=== PATIENT | female | born 1945 | race Caucasian/White ===

== ENCOUNTER 2020-05-26 23:47 | Inpatient (IN) | payer MEDICARE, OTHER, SELFPAY ==
[2020-05-26 23:54] VITALS: BP 159/73; PULSE 79; RESP 24; O2SAT 100; BMI 27.0
[2020-05-27] VITALS (10 sets, daily range): BP systolic 115–139; BP diastolic 58–82; PULSE 70–99; RESP 16–20; TEMP 36.8–37.2; O2SAT 92–100
--- NOTE | 2020-05-27 00:03 | ECG_ITS ---
[facility] Test Date: 2020-05-27 Pat Name: Karina Grant Department: Room: Gender: Female Hydraulic Technician: : 1945 Requested By: Marleni Diego Order Number: [id number] Arnel MD: Jovi Soriano M.D. Measurements Intervals [place] Rate: 71 P: 139 WI: 155 QRS: -33 QRSD: 145 T: 32 QT: 443 QTc: 483 Interpretive Statements ECTOPIC ATRIAL RHYTHM POSSIBLE LEFT ATRIAL ENLARGEMENT [-0.1mV P WAVE IN V1/V2] LEFT AXIS DEVIATION [QRS AXIS < -30] RIGHT BUNDLE BRANCH BLOCK [120+ ms QRS DURATION, UPRIGHT V1, 40+ ms S IN I/aVL/V4/V5/V6] LEFT VENTRICULAR HYPERTROPHY AND ST-T CHANGE [VOLTAGE CRITERIA PLUS ST/T ABNORMALITY] POSSIBLE SEPTAL MYOCARDIAL INFARCTION , OF INDETERMINATE AGE [30 ms Q WAVE IN V1/V2] PROBABLE LATERAL MYOCARDIAL INFARCTION , OF INDETERMINATE AGE [35 ms Q WAVE IN I/aVL/V5/V6] No previous ECG available for comparison Electronically Signed On 05-27-2020 20:52:08 CDT by Jovi Soriano M.D. [id number]
--- NOTE | 2020-05-27 00:03 | XR_ITS ---
WS: [id number] EXAM: AP CHEST: PORTABLE UPRIGHT DATE OF EXAM: 05/27/2020, 0015 hours COMPARISON: NONE HISTORY: Patient is 75 years old with shortness of breath, vomiting/diarrhea and sweating. FINDINGS: The cardiac silhouette is normal in size. The mediastinal contours are normal. The pulmonary vas cularity is normal. The lungs are clear of infiltrate. There is no effusion or pneumothorax. No ac ryan bony abnormality is seen. Tiny retrocardiac hiatal hernia. XR/XR chest 1V portable [id number] IMPRESSION: No acute pulmonary disease.
--- NOTE | 2020-05-27 00:05 | ED_ITS ---
Documented by User: GLADIS Storey 05/27/20 03:42 HPI - SOB/Dyspnea General: Chief Complaint: Shortness of Breath/Dyspnea Stated Complaint: feeling sick Time Seen by Provider: 05/26/20 23:52 Source: patient Mode of arrival: wheelchair Limitations: no limitations History of Present Illness: HPI Narrative: Patient is a 75-year-old female who presents to ED today along with her stating approximately 3 hours ago while at rest she suddenly felt nauseous and began sweating. She states she had two episodes of vomiting after which began developing shortness of breath. She states symptoms did not improve therefore decided to come to the emergency department for further evaluation. Upon arrival she is not having any chest pain. She states she still feels short of breath and nauseous. She is not having any abdominal pain. She has not been running fevers. Denies sick contacts or COVID exposure. PMH is significant for HTN and CKD. Associated symptoms: Reports nausea and vomiting; Deny abdominal pain, chest congestion, chest pain, dizziness, extremity pain, fever(s), hemoptysis, lightheadedness, orthopnea, palpitations or syncope Review of Systems Const: Denies: fever(s), chills, body aches, change in appetite, change in weight, fatigue or malaise Eyes: Denies: change in vision, blurry vision, photophobia, floaters or seeing flashes ENMT: Denies: odynophagia Card: Denies: chest pain, palpitations, irregular heart rhythm, edema, swelling of feet/ankles, lightheadedness, syncope, pre-syncope, dyspnea on exertion, orthopnea or leg pain with exertion Resp: Reports: dyspnea; Denies: productive cough, non-productive cough, wheezing, stridor, pain on inspiration, change in phlegm color, hemoptysis or chest congestion GI: Reports: nausea and vomiting; Denies: abdominal pain, hematemesis, coffee ground emesis, heartburn, diarrhea, change in bowel habits, change in stool character, hematochezia or melena : Denies: flank pain, difficulty voiding, dysuria, urinary frequency, urinary urgency or urinary hesitancy Musc: Denies: neck pain, back pain, extremity pain, extremity swelling, joint pain or joint swelling Skin/Breast: Denies: rash Neuro: Denies: headache(s), numbness in extremities, weakness in extremities, sensory changes, lack of coordination, dizziness, vertigo or confusion PFSH ED PFSH: Medical History Chronic kidney disease Hyperlipidemia Hypertension Surgical History History of hysterectomy Family History Mother CAD (coronary artery disease) Father Lung disease CAD (coronary artery disease) Sister Cancer Colon cancer Social History Smoking and tobacco status: never smoked Alcohol intake: never Household members: spouse Marital status: Physical Exam Const: COMMON NORMALS: average body habitus, patient oriented x3, no limitations, healthy appearing, alert and well nourished GENERAL APPEARANCE: cooperative ORIENTATION/CONSCIOUSNESS: Yes awake, Yes oriented to person, Yes oriented to place and Yes oriented to time OTHER: mild hyperventilation HENMT: COMMON NORMALS: normocephalic and atraumatic HEAD & SCALP: normocephalic and atraumatic Chest: COMMONS NORMALS: normal inspection of the chest and normal palpation of entire chest wall Resp: COMMON NORMALS: normal respiratory effort and clear to auscultation bilaterally EFFORT & INSPECTION: Yes tachypneic, No labored, No retractions and No uses accessory muscles AUSCULTATION: clear to auscultation bilaterally Cardio: COMMON NORMALS: regular rate and regular rhythm RATE: regular rate RHYTHM: regular rhythm GI: COMMON NORMALS: Normal to inspection, nondistended, normoactive bowel sounds present, Soft to palpation, non-tender, No hepatosplenomegaly present and no masses PALPATION: Yes Soft to palpation and Yes No hepatosplenomegaly present Neuro: COMMON NORMALS: patient oriented x3 SENSORIUM/ORIENTATION: Yes alert, Yes oriented to person, Yes oriented to place and Yes oriented to time Skin: COMMON NORMALS: no rashes or lesions noted GENERAL SKIN EXAM: no rashes or lesions noted Course Vital Signs: Vital signs: Vital Signs Temperature 98.2 F 05/28/20 14:00 Pulse Rate 66 05/28/20 14:00 Respiratory Rate 18 05/28/20 14:00 Blood Pressure 150/69 05/28/20 14:00 Pulse Oximetry 96 05/28/20 14:00 MDM - SOB/Dyspnea MDM Narrative: Medical decision making narrative: Patient is resting comfortably in no acute distress. She tells me she feels much better. There has been a SEVERE delay in patient's care regarding her lab work. Her first set of labs were apparently hemolyzed. These were attempted to be redrawn by several individuals without success. Patient has been here over 3.5 hours now and I still do not have any results other than a CBC and a lactate and a d- dimer. Patient does have a white count of 24.2. She has an elevated lactate at 2.7. She has a very mildly elevated d-dimer at 0.74 but this is a normal age- adjusted level. Case has been discussed with Dr. Prince who will assume care due to shift end. Lab Data: Labs: Lab Results 05/27/20 05/27/20 05/27/20 Range/Units 00:18 00:18 00:18 WBC 24.2 H (4.0-10.0) 10^3/ uL RBC 5.20 (4.1-5.3) 10^6/u L Hgb 15.1 (11.5-15.3) g/dL Hct 46.7 (37.0-47.0) % MCV 89.8 (81-99) fL MCH 29.0 (28.0-34.0) pg MCHC 32.3 (30.0-36.0) g/dL RDW 13.2 (12.1-15.1) % Plt Count 235 (130-400) 10^3/c mm MPV 12.9 H (7.4-10.4) fL Neut % (Auto) 83.4 % Lymph % (Auto) 9.3 % [place] % (Auto) 6.0 % Eos % (Auto) 0.5 % Baso % (Auto) 0.3 % Neut # (Auto) 20.22 H (1.8-7.7) 10^3/u L Lymph # (Auto) 2.2 (0.8-4.8) 10^3/u L [place] # (Auto) 1.4 H (0.2-0.9) 10^3/u L Eos # (Auto) 0.1 (0.0-0.8) 10^3/u L Baso # (Auto) 0.1 (0.0-0.1) 10^3/u L Nucleated RBC % (a uto) 0 % Nucleated RBCs # 0.0 /100WBC D-Dimer (0-0.59) ug/mIFE U Specimen Type Sample Site ABG pH (7.35-7.45) ABG pCO2 (35-45) mmHg ABG pO2 (80.0-100.0) mmH g ABG HCO3 (22-26) mmol/L ABG O2 Saturation ABG Base Excess (-2.0-2.0) mmol/ L Eitan Test A-a O2 Gradient (5-10) mmHg Hematocrit (37-47) % Hgb O2 Saturation (95-100) % Carboxyhemoglobin (0.4-20.1) %THgb Methemoglobin (0.4-1.5) % Total Hemoglobin (12-16) g/dL Ionized Calcium (1.1-1.4) mmol/L O2 Delivery Device FiO2 % Claim Representative ID Sodium Cancelled Potassium Cancelled Chloride Cancelled Carbon Dioxide Cancelled Anion Gap Cancelled BUN Cancelled Creatinine Cancelled GFR Calculation Cancelled Glucose Cancelled Calculated Osmolal ity Cancelled Lactic Acid Cancelled Calcium Cancelled Magnesium Cancelled Total Bilirubin Cancelled AST Cancelled ALT Cancelled Alkaline Phosphata se Cancelled Troponin T Baselin e Total Protein Cancelled Albumin Cancelled Globulin Cancelled Lipase (13-60) U/L Urine Color (Yellow) Urine Appearance (CLEAR) Urine pH (5-7) Ur Specific Gravit y (1.005-1.030) Urine Protein (Negative) Urine Glucose (UA) (Normal) Urine Ketones (Negative) Urine Blood (Negative) Urine Nitrate (Negative) Urine Bilirubin (Negative) Urine Urobilinogen (Negative) mg/dL Ur Leukocyte Kay ase (Negative) Urine RBC (0-2) /hpf Urine WBC (0-5) /hpf Ur Squamous Epith Cells (0-5) /hpf Amorphous Sediment /hpf Urine Bacteria (NONE) /hpf Hyaline Casts /lpf Urine Mucus /hpf Serum Ketones (Negative) Influenza Type A A g (Negative) Influenza Type B A g (Negative) SARS-CoV-2 Ag (Rap id) (Negative) 09/05/27/20 05/27/20 Range/Units 00:18 00:18 01:00 WBC (4.0-10.0) 10^3/ uL RBC (4.1-5.3) 10^6/u L Hgb (11.5-15.3) g/dL Hct (37.0-47.0) % MCV (81-99) fL MCH (28.0-34.0) pg MCHC (30.0-36.0) g/dL RDW (12.1-15.1) % Plt Count (130-400) 10^3/c mm MPV (7.4-10.4) fL Neut % (Auto) % Lymph % (Auto) % [place] % (Auto) % Eos % (Auto) % Baso % (Auto) % Neut # (Auto) (1.8-7.7) 10^3/u L Lymph # (Auto) (0.8-4.8) 10^3/u L [place] # (Auto) (0.2-0.9) 10^3/u L Eos # (Auto) (0.0-0.8) 10^3/u L Baso # (Auto) (0.0-0.1) 10^3/u L Nucleated RBC % (a uto) % Nucleated RBCs # /100WBC D-Dimer 0.74 H (0-0.59) ug/mIFE U Specimen Type Arterial Sample Site Brachial, right ABG pH 7.38 (7.35-7.45) ABG pCO2 31.7 L (35-45) mmHg ABG pO2 97.5 (80.0-100.0) mmH g ABG HCO3 18.6 L (22-26) mmol/L ABG O2 Saturation 98.0 ABG Base Excess -5.5 L (-2.0-2.0) mmol/ L Eitan Test Pos A-a O2 Gradient 1.6 L (5-10) mmHg Hematocrit 43.6 (37-47) % Hgb O2 Saturation 96.7 (95-100) % Carboxyhemoglobin 0.5 (0.4-20.1) %THgb Methemoglobin 0.9 (0.4-1.5) % Total Hemoglobin 14.2 (12-16) g/dL Ionized Calcium 1.2 (1.1-1.4) mmol/L O2 Delivery Device None FiO2 21.0 % Claim Representative ID [id number] Sodium 141.0 Potassium 3.9 Chloride Carbon Dioxide Anion Gap BUN Creatinine GFR Calculation Glucose 224.0 H Calculated Osmolal ity Lactic Acid Calcium Magnesium Total Bilirubin AST ALT Alkaline Phosphata se Troponin T Baselin e Cancelled Total Protein Albumin Globulin Lipase (13-60) U/L Urine Color (Yellow) Urine Appearance (CLEAR) Urine pH (5-7) Ur Specific Gravit y (1.005-1.030) Urine Protein (Negative) Urine Glucose (UA) (Normal) Urine Ketones (Negative) Urine Blood (Negative) Urine Nitrate (Negative) Urine Bilirubin (Negative) Urine Urobilinogen (Negative) mg/dL Ur Leukocyte Kay ase (Negative) Urine RBC (0-2) /hpf Urine WBC (0-5) /hpf Ur Squamous Epith Cells (0-5) /hpf Amorphous Sediment /hpf Urine Bacteria (NONE) /hpf Hyaline Casts /lpf Urine Mucus /hpf Serum Ketones (Negative) Influenza Type A A g (Negative) Influenza Type B A g (Negative) SARS-CoV-2 Ag (Rap id) (Negative) 05/27/20 05/27/20 05/27/20 Range/Units 02:40 02:40 03:48 WBC (4.0-10.0) 10^3/ uL RBC (4.1-5.3) 10^6/u L Hgb (11.5-15.3) g/dL Hct (37.0-47.0) % MCV (81-99) fL MCH (28.0-34.0) pg MCHC (30.0-36.0) g/dL RDW (12.1-15.1) % Plt Count (130-400) 10^3/c mm MPV (7.4-10.4) fL Neut % (Auto) % Lymph % (Auto) % [place] % (Auto) % Eos % (Auto) % Baso % (Auto) % Neut # (Auto) (1.8-7.7) 10^3/u L Lymph # (Auto) (0.8-4.8) 10^3/u L [place] # (Auto) (0.2-0.9) 10^3/u L Eos # (Auto) (0.0-0.8) 10^3/u L Baso # (Auto) (0.0-0.1) 10^3/u L Nucleated RBC % (a uto) % Nucleated RBCs # /100WBC D-Dimer (0-0.59) ug/mIFE U Specimen Type Sample Site ABG pH (7.35-7.45) ABG pCO2 (35-45) mmHg ABG pO2 (80.0-100.0) mmH g ABG HCO3 (22-26) mmol/L ABG O2 Saturation ABG Base Excess (-2.0-2.0) mmol/ L E[place] Test A-a O2 Gradient (5-10) mmHg Hematocrit (37-47) % Hgb O2 Saturation (95-100) % Carboxyhemoglobin (0.4-20.1) %THgb Methemoglobin (0.4-1.5) % Total Hemoglobin (12-16) g/dL Ionized Calcium (1.1-1.4) mmol/L O2 Delivery Device FiO2 % Claim Representative ID Sodium Cancelled Potassium Cancelled Chloride Cancelled Carbon Dioxide Cancelled Anion Gap Cancelled BUN Cancelled Creatinine Cancelled GFR Calculation Cancelled Glucose Cancelled Calculated Osmolal ity Cancelled Lactic Acid 2.7 H Calcium Cancelled Magnesium Cancelled Total Bilirubin Cancelled AST Cancelled ALT Cancelled Alkaline Phosphata se Cancelled Troponin T Baselin e 18 H Total Protein Cancelled Albumin Cancelled Globulin Cancelled Lipase (13-60) U/L Urine Color (Yellow) Urine Appearance (CLEAR) Urine pH (5-7) Ur Specific Gravit y (1.005-1.030) Urine Protein (Negative) Urine Glucose (UA) (Normal) Urine Ketones (Negative) Urine Blood (Negative) Urine Nitrate (Negative) Urine Bilirubin (Negative) Urine Urobilinogen (Negative) mg/dL Ur Leukocyte Kay ase (Negative) Urine RBC (0-2) /hpf Urine WBC (0-5) /hpf Ur Squamous Epith Cells (0-5) /hpf Amorphous Sediment /hpf Urine Bacteria (NONE) /hpf Hyaline Casts /lpf Urine Mucus /hpf Serum Ketones (Negative) Influenza Type A A g (Negative) Influenza Type B A g (Negative) SARS-CoV-2 Ag (Rap id) (Negative) 05/27/20 05/27/2020 Range/Units 03:48 03:48 03:48 WBC (4.0-10.0) 10^3/ uL RBC (4.1-5.3) 10^6/u L Hgb (11.5-15.3) g/dL Hct (37.0-47.0) % MCV (81-99) fL MCH (28.0-34.0) pg MCHC (30.0-36.0) g/dL RDW (12.1-15.1) % Plt Count (130-400) 10^3/c mm MPV (7.4-10.4) fL Neut % (Auto) % Lymph % (Auto) % [place] % (Auto) % Eos % (Auto) % Baso % (Auto) % Neut # (Auto) (1.8-7.7) 10^3/u L Lymph # (Auto) (0.8-4.8) 10^3/u L [place] # (Auto) (0.2-0.9) 10^3/u L Eos # (Auto) (0.0-0.8) 10^3/u L Baso # (Auto) (0.0-0.1) 10^3/u L Nucleated RBC % (a uto) % Nucleated RBCs # /100WBC D-Dimer (0-0.59) ug/mIFE U Specimen Type Sample Site ABG pH (7.35-7.45) ABG pCO2 (35-45) mmHg ABG pO2 (80.0-100.0) mmH g ABG HCO3 (22-26) mmol/L ABG O2 Saturation ABG Base Excess (-2.0-2.0) mmol/ L E[place] Test A-a O2 Gradient (5-10) mmHg Hematocrit (37-47) % Hgb O2 Saturation (95-100) % Carboxyhemoglobin (0.4-20.1) %THgb Methemoglobin (0.4-1.5) % Total Hemoglobin (12-16) g/dL Ionized Calcium (1.1-1.4) mmol/L O2 Delivery Device FiO2 % Claim Representative ID Sodium 138 Potassium 4.1 Chloride 103 Carbon Dioxide 18 L Anion Gap 21.1 H BUN 33 H Creatinine 2.3 H GFR Calculation Not Reportable Glucose 154 H Calculated Osmolal ity 286 Lactic Acid Calcium 9.5 Magnesium 2.1 Total Bilirubin 0.4 AST 18 ALT 12 Alkaline Phosphata se 107 H Troponin T Baselin e Total Protein 7.3 Albumin 4.2 Globulin 3.1 Lipase 30 (13-60) U/L Urine Color (Yellow) Urine Appearance (CLEAR) Urine pH (5-7) Ur Specific Gravit y (1.005-1.030) Urine Protein (Negative) Urine Glucose (UA) (Normal) Urine Ketones (Negative) Urine Blood (Negative) Urine Nitrate (Negative) Urine Bilirubin (Negative) Urine Urobilinogen (Negative) mg/dL Ur Leukocyte Kay ase (Negative) Urine RBC (0-2) /hpf Urine WBC (0-5) /hpf Ur Squamous Epith Cells (0-5) /hpf Amorphous Sediment /hpf Urine Bacteria (NONE) /hpf Hyaline Casts /lpf Urine Mucus /hpf Serum Ketones Negative (Negative) Influenza Type A A g (Negative) Influenza Type B A g (Negative) SARS-CoV-2 Ag (Rap id) (Negative) 05/27/20 05/27/20 05/27/20 Range/Units 04:54 05:30 05:45 WBC (4.0-10.0) 10^3/ uL RBC (4.1-5.3) 10^6/u L Hgb (11.5-15.3) g/dL Hct (37.0-47.0) % MCV (81-99) fL MCH (28.0-34.0) pg MCHC (30.0-36.0) g/dL RDW (12.1-15.1) % Plt Count (130-400) 10^3/c mm MPV (7.4-10.4) fL Neut % (Auto) % Lymph % (Auto) % [place] % (Auto) % Eos % (Auto) % Baso % (Auto) % Neut # (Auto) (1.8-7.7) 10^3/u L Lymph # (Auto) (0.8-4.8) 10^3/u L [place] # (Auto) (0.2-0.9) 10^3/u L Eos # (Auto) (0.0-0.8) 10^3/u L Baso # (Auto) (0.0-0.1) 10^3/u L Nucleated RBC % (a uto) % Nucleated RBCs # /100WBC D-Dimer (0-0.59) ug/mIFE U Specimen Type Sample Site ABG pH (7.35-7.45) ABG pCO2 (35-45) mmHg ABG pO2 (80.0-100.0) mmH g ABG HCO3 (22-26) mmol/L ABG O2 Saturation ABG Base Excess (-2.0-2.0) mmol/ L E[place] Test A-a O2 Gradient (5-10) mmHg Hematocrit (37-47) % Hgb O2 Saturation (95-100) % Carboxyhemoglobin (0.4-20.1) %THgb Methemoglobin (0.4-1.5) % Total Hemoglobin (12-16) g/dL Ionized Calcium (1.1-1.4) mmol/L O2 Delivery Device FiO2 % Claim Representative ID Sodium Potassium Chloride Carbon Dioxide Anion Gap BUN Creatinine GFR Calculation Glucose Calculated Osmolal ity Lactic Acid Calcium Magnesium Total Bilirubin AST ALT Alkaline Phosphata se Troponin T Baselin e Total Protein Albumin Globulin Lipase (13-60) U/L Urine Color Yellow (Yellow) Urine Appearance Clear (CLEAR) Urine pH 5 (5-7) Ur Specific Gravit y 1.020 (1.005-1.030) Urine Protein Trace (Negative) Urine Glucose (UA) Norm (Normal) Urine Ketones Negative (Negative) Urine Blood Neg (Negative) Urine Nitrate Negative (Negative) Urine Bilirubin 1+ H (Negative) Urine Urobilinogen Norm (Negative) mg/dL Ur Leukocyte Kay ase Negative (Negative) Urine RBC Rare (0-2) /hpf Urine WBC Rare (0-5) /hpf Ur Squamous Epith Cells 0-4 H (0-5) /hpf Amorphous Sediment Trace /hpf Urine Bacteria Trace (NONE) /hpf Hyaline Casts 0-4 H /lpf Urine Mucus Trace /hpf Serum Ketones (Negative) Influenza Type A A g Negative (Negative) Influenza Type B A g Negative (Negative) SARS-CoV-2 Ag (Rap id) Negative (Negative) EKG Data^: EKG 1: EKG Interpretation Date: 05/27/20 EKG interpretation time: 00:02 Interpretation: Sinus rhythm with sinus arrhythmia Rate 71 RBBB LVH Reviewed with Dr. Prince Last previous on file was back in 2005 Discharge Plan Discharge Patient Disposition: Admitted As Inpatient Admit Provider: Genesis Love Clinical Impression: Cholelithiasis, Hypertension, Chronic kidney disease, Sepsis Condition: Stable Referrals: Ramin Arciniega MD [Physician] - 06/05/20 2:45 pm (Return to surgery office in 1 week. You have an appointment on June 05 at 2:45) Christopher Murdock MD [Primary Care Provider] - 06/04/20 9:30 am (You have an appointment on June 04 at 9:30am) Discharge Diet: As Directed and Low Fat Discharge Activity: Increase activity as tolerated Patient Instructions: Dehydration - Adult, Cholelithiasis (DC), Low Fat Diet (DC) Additional Instructions: You are diagnosed with a gallstone, stone in the gallbladder, felt this was contributing to your symptoms of abdominal pain and nausea. Would recommend outpatient follow-up with Dr. Arciniega as scheduled in 1 week to discuss surgery for removal of the gallbladder. Until this time it is strongly recommended to continue with a bland, low-fat, diet. Orange, spicy or fatty foods can aggravate the gallbladder and contribute to more pain, therefore it is it essential to avoid these foods. No changes to your medications at this time. Your kidney function improved with fluids, slight increase in your kidney function on admission was likely due to dehydration. Continue to follow-up with Dr. Willett as previously scheduled Follow-up with primary care provider in 7 to 10 days Call your physician or present to the ED for any acute illness or concern Discharge Date/Time: 05/27/20 09:16 Sign Out Sign Out Data: Patient Sign Out occurred on 05/27/20 at 03:44. Patient's care was discussed, and care was transferred from to Jodi Prince. Patient Sign Out occurred on 05/27/20 at 06:32. Patient's care was discussed, and care was transferred from to Yo Akers DO. Coding Level of Care Code ED Advertising Specialist for Chg Fwd Exam Detailed Documented by User: Jodi Prince 05/27/20 05:42 HPI - SOB/Dyspnea General: Chief Complaint: Shortness of Breath/Dyspnea Stated Complaint: feeling sick Time Seen by Provider: 05/26/20 23:52 PFSH ED PFSH: Medical History Chronic kidney disease Hyperlipidemia Hypertension Surgical History History of hysterectomy Family History Mother CAD (coronary artery disease) Father Lung disease CAD (coronary artery disease) Sister Cancer Colon cancer Social History Smoking and tobacco status: never smoked Alcohol intake: never Household members: spouse Marital status: Course Vital Signs: Vital signs: Vital Signs Temperature 98.2 F 05/28/20 14:00 Pulse Rate 66 05/28/20 14:00 Respiratory Rate 18 05/28/20 14:00 Blood Pressure 150/69 05/28/20 14:00 Pulse Oximetry 96 05/28/20 14:00 MDM - SOB/Dyspnea MDM Narrative: Medical decision making narrative: 0300 - Patient is seen and examined by me. I agree with Marleni Diego PAs assessment and plan. I have added a CTA as she will be going for a CT of the abdomen pelvis for her upper abdominal pain on my exam as well as her nausea and vomiting. 0545 -patient's care be turned over at change of shift to Dr. Akers. Patient still continues to have stable vital signs. She is not provided us with a urine as of this time. Will place a Putnam catheter to obtain urine but as well as monitor urine output as she is acute renal failure. COVID swab along with CTs are pending. Lab Data: Labs: Lab Results 05/27/20 05/27/20 05/27/20 Range/Units 00:18 00:18 00:18 WBC 24.2 H (4.0-10.0) 10^3/ uL RBC 5.20 (4.1-5.3) 10^6/u L Hgb 15.1 (11.5-15.3) g/dL Hct 46.7 (37.0-47.0) % MCV 89.8 (81-99) fL MCH 29.0 (28.0-34.0) pg MCHC 32.3 (30.0-36.0) g/dL RDW 13.2 (12.1-15.1) % Plt Count 235 (130-400) 10^3/c mm MPV 12.9 H (7.4-10.4) fL Neut % (Auto) 83.4 % Lymph % (Auto) 9.3 % [place] % (Auto) 6.0 % Eos % (Auto) 0.5 % Baso % (Auto) 0.3 % Neut # (Auto) 20.22 H (1.8-7.7) 10^3/u L Lymph # (Auto) 2.2 (0.8-4.8) 10^3/u L [place] # (Auto) 1.4 H (0.2-0.9) 10^3/u L Eos # (Auto) 0.1 (0.0-0.8) 10^3/u L Baso # (Auto) 0.1 (0.0-0.1) 10^3/u L Nucleated RBC % (a uto) 0 % Nucleated RBCs # 0.0 /100WBC D-Dimer (0-0.59) ug/mIFE U Specimen Type Sample Site ABG pH (7.35-7.45) ABG pCO2 (35-45) mmHg ABG pO2 (80.0-100.0) mmH g ABG HCO3 (22-26) mmol/L ABG O2 Saturation ABG Base Excess (-2.0-2.0) mmol/ L Eitan Test A-a O2 Gradient (5-10) mmHg Hematocrit (37-47) % Hgb O2 Saturation (95-100) % Carboxyhemoglobin (0.4-20.1) %THgb Methemoglobin (0.4-1.5) % Total Hemoglobin (12-16) g/dL Ionized Calcium (1.1-1.4) mmol/L O2 Delivery Device FiO2 % Claim Representative ID Sodium Cancelled Potassium Cancelled Chloride Cancelled Carbon Dioxide Cancelled Anion Gap Cancelled BUN Cancelled Creatinine Cancelled GFR Calculation Cancelled Glucose Cancelled Calculated Osmolal ity Cancelled Lactic Acid Cancelled Calcium Cancelled Magnesium Cancelled Total Bilirubin Cancelled AST Cancelled ALT Cancelled Alkaline Phosphata se Cancelled Troponin T Baselin e Total Protein Cancelled Albumin Cancelled Globulin Cancelled Lipase (13-60) U/L Urine Color (Yellow) Urine Appearance (CLEAR) Urine pH (5-7) Ur Specific Gravit y (1.005-1.030) Urine Protein (Negative) Urine Glucose (UA) (Normal) Urine Ketones (Negative) Urine Blood (Negative) Urine Nitrate (Negative) Urine Bilirubin (Negative) Urine Urobilinogen (Negative) mg/dL Ur Leukocyte Kay ase (Negative) Urine RBC (0-2) /hpf Urine WBC (0-5) /hpf Ur Squamous Epith Cells (0-5) /hpf Amorphous Sediment /hpf Urine Bacteria (NONE) /hpf Hyaline Casts /lpf Urine Mucus /hpf Serum Ketones (Negative) Influenza Type A A g (Negative) Influenza Type B A g (Negative) SARS-CoV-2 Ag (Rap id) (Negative) 05/27/20 05/27/20 05/27/20 Range/Units 00:18 00:18 01:00 WBC (4.0-10.0) 10^3/ uL RBC (4.1-5.3) 10^6/u L Hgb (11.5-15.3) g/dL Hct (37.0-47.0) % MCV (81-99) fL MCH (28.0-34.0) pg MCHC (30.0-36.0) g/dL RDW (12.1-15.1) % Plt Count (130-400) 10^3/c mm MPV (7.4-10.4) fL Neut % (Auto) % Lymph % (Auto) % [place] % (Auto) % Eos % (Auto) % Baso % (Auto) % Neut # (Auto) (1.8-7.7) 10^3/u L Lymph # (Auto) (0.8-4.8) 10^3/u L [place] # (Auto) (0.2-0.9) 10^3/u L Eos # (Auto) (0.0-0.8) 10^3/u L Baso # (Auto) (0.0-0.1) 10^3/u L Nucleated RBC % (a uto) % Nucleated RBCs # /100WBC D-Dimer 0.74 H (0-0.59) ug/mIFE U Specimen Type Arterial Sample Site Brachial, right ABG pH 7.38 (7.35-7.45) ABG pCO2 31.7 L (35-45) mmHg ABG pO2 97.5 (80.0-100.0) mmH g ABG HCO3 18.6 L (22-26) mmol/L ABG O2 Saturation 98.0 ABG Base Excess -5.5 L (-2.0-2.0) mmol/ L Eitan Test Pos A-a O2 Gradient 1.6 L (5-10) mmHg Hematocrit 43.6 (37-47) % Hgb O2 Saturation 96.7 (95-100) % Carboxyhemoglobin 0.5 (0.4-20.1) %THgb Methemoglobin 0.9 (0.4-1.5) % Total Hemoglobin 14.2 (12-16) g/dL Ionized Calcium 1.2 (1.1-1.4) mmol/L O2 Delivery Device None FiO2 21.0 % Claim Representative ID [id number] Sodium 141.0 Potassium 3.9 Chloride Carbon Dioxide Anion Gap BUN Creatinine GFR Calculation Glucose 224.0 H Calculated Osmolal ity Lactic Acid Calcium Magnesium Total Bilirubin AST ALT Alkaline Phosphata se Troponin T Baselin e Cancelled Total Protein Albumin Globulin Lipase (13-60) U/L Urine Color (Yellow) Urine Appearance (CLEAR) Urine pH (5-7) Ur Specific Gravit y (1.005-1.030) Urine Protein (Negative) Urine Glucose (UA) (Normal) Urine Ketones (Negative) Urine Blood (Negative) Urine Nitrate (Negative) Urine Bilirubin (Negative) Urine Urobilinogen (Negative) mg/dL Ur Leukocyte Kay ase (Negative) Urine RBC (0-2) /hpf Urine WBC (0-5) /hpf Ur Squamous Epith Cells (0-5) /hpf Amorphous Sediment /hpf Urine Bacteria (NONE) /hpf Hyaline Casts /lpf Urine Mucus /hpf Serum Ketones (Negative) Influenza Type A A g (Negative) Influenza Type B A g (Negative) SARS-CoV-2 Ag (Rap id) (Negative) 09/14/20 09/14/20 09/14/20 Range/Units 02:40 02:40 03:48 WBC (4.0-10.0) 10^3/ uL RBC (4.1-5.3) 10^6/u L Hgb (11.5-15.3) g/dL Hct (37.0-47.0) % MCV (81-99) fL MCH (28.0-34.0) pg MCHC (30.0-36.0) g/dL RDW (12.1-15.1) % Plt Count (130-400) 10^3/c mm MPV (7.4-10.4) fL Neut % (Auto) % Lymph % (Auto) % [place] % (Auto) % Eos % (Auto) % Baso % (Auto) % Neut # (Auto) (1.8-7.7) 10^3/u L Lymph # (Auto) (0.8-4.8) 10^3/u L [place] # (Auto) (0.2-0.9) 10^3/u L Eos # (Auto) (0.0-0.8) 10^3/u L Baso # (Auto) (0.0-0.1) 10^3/u L Nucleated RBC % (a uto) % Nucleated RBCs # /100WBC D-Dimer (0-0.59) ug/mIFE U Specimen Type Sample Site ABG pH (7.35-7.45) ABG pCO2 (35-45) mmHg ABG pO2 (80.0-100.0) mmH g ABG HCO3 (22-26) mmol/L ABG O2 Saturation ABG Base Excess (-2.0-2.0) mmol/ L [place] Test A-a O2 Gradient (5-10) mmHg Hematocrit (37-47) % Hgb O2 Saturation (95-100) % Carboxyhemoglobin (0.4-20.1) %THgb Methemoglobin (0.4-1.5) % Total Hemoglobin (12-16) g/dL Ionized Calcium (1.1-1.4) mmol/L O2 Delivery Device FiO2 % Claim Representative ID Sodium Cancelled Potassium Cancelled Chloride Cancelled Carbon Dioxide Cancelled Anion Gap Cancelled BUN Cancelled Creatinine Cancelled GFR Calculation Cancelled Glucose Cancelled Calculated Osmolal ity Cancelled Lactic Acid 2.7 H Calcium Cancelled Magnesium Cancelled Total Bilirubin Cancelled AST Cancelled ALT Cancelled Alkaline Phosphata se Cancelled Troponin T Baselin e 18 H Total Protein Cancelled Albumin Cancelled Globulin Cancelled Lipase (13-60) U/L Urine Color (Yellow) Urine Appearance (CLEAR) Urine pH (5-7) Ur Specific Gravit y (1.005-1.030) Urine Protein (Negative) Urine Glucose (UA) (Normal) Urine Ketones (Negative) Urine Blood (Negative) Urine Nitrate (Negative) Urine Bilirubin (Negative) Urine Urobilinogen (Negative) mg/dL Ur Leukocyte Kay ase (Negative) Urine RBC (0-2) /hpf Urine WBC (0-5) /hpf Ur Squamous Epith Cells (0-5) /hpf Amorphous Sediment /hpf Urine Bacteria (NONE) /hpf Hyaline Casts /lpf Urine Mucus /hpf Serum Ketones (Negative) Influenza Type A A g (Negative) Influenza Type B A g (Negative) SARS-CoV-2 Ag (Rap id) (Negative) 05/27/20 05/27/20 05/27/20 Range/Units 03:48 03:48 03:48 WBC (4.0-10.0) 10^3/ uL RBC (4.1-5.3) 10^6/u L Hgb (11.5-15.3) g/dL Hct (37.0-47.0) % MCV (81-99) fL MCH (28.0-34.0) pg MCHC (30.0-36.0) g/dL RDW (12.1-15.1) % Plt Count (130-400) 10^3/c mm MPV (7.4-10.4) fL Neut % (Auto) % Lymph % (Auto) % [place] % (Auto) % Eos % (Auto) % Baso % (Auto) % Neut # (Auto) (1.8-7.7) 10^3/u L Lymph # (Auto) (0.8-4.8) 10^3/u L [place] # (Auto) (0.2-0.9) 10^3/u L Eos # (Auto) (0.0-0.8) 10^3/u L Baso # (Auto) (0.0-0.1) 10^3/u L Nucleated RBC % (a uto) % Nucleated RBCs # /100WBC D-Dimer (0-0.59) ug/mIFE U Specimen Type Sample Site ABG pH (7.35-7.45) ABG pCO2 (35-45) mmHg ABG pO2 (80.0-100.0) mmH g ABG HCO3 (22-26) mmol/L ABG O2 Saturation ABG Base Excess (-2.0-2.0) mmol/ L [place] Test A-a O2 Gradient (5-10) mmHg Hematocrit (37-47) % Hgb O2 Saturation (95-100) % Carboxyhemoglobin (0.4-20.1) %THgb Methemoglobin (0.4-1.5) % Total Hemoglobin (12-16) g/dL Ionized Calcium (1.1-1.4) mmol/L O2 Delivery Device FiO2 % Claim Representative ID Sodium 138 Potassium 4.1 Chloride 103 Carbon Dioxide 18 L Anion Gap 21.1 H BUN 33 H Creatinine 2.3 H GFR Calculation Not Reportable Glucose 154 H Calculated Osmolal ity 286 Lactic Acid Calcium 9.5 Magnesium 2.1 Total Bilirubin 0.4 AST 18 ALT 12 Alkaline Phosphata se 107 H Troponin T Baselin e Total Protein 7.3 Albumin 4.2 Globulin 3.1 Lipase 30 (13-60) U/L Urine Color (Yellow) Urine Appearance (CLEAR) Urine pH (5-7) Ur Specific Gravit y (1.005-1.030) Urine Protein (Negative) Urine Glucose (UA) (Normal) Urine Ketones (Negative) Urine Blood (Negative) Urine Nitrate (Negative) Urine Bilirubin (Negative) Urine Urobilinogen (Negative) mg/dL Ur Leukocyte Kay ase (Negative) Urine RBC (0-2) /hpf Urine WBC (0-5) /hpf Ur Squamous Epith Cells (0-5) /hpf Amorphous Sediment /hpf Urine Bacteria (NONE) /hpf Hyaline Casts /lpf Urine Mucus /hpf Serum Ketones Negative (Negative) Influenza Type A A g (Negative) Influenza Type B A g (Negative) SARS-CoV-2 Ag (Rap id) (Negative) 05/27/20 05/27/20 05/27/20 Range/Units 04:54 05:30 05:45 WBC (4.0-10.0) 10^3/ uL RBC (4.1-5.3) 10^6/u L Hgb (11.5-15.3) g/dL Hct (37.0-47.0) % MCV (81-99) fL MCH (28.0-34.0) pg MCHC (30.0-36.0) g/dL RDW (12.1-15.1) % Plt Count (130-400) 10^3/c mm MPV (7.4-10.4) fL Neut % (Auto) % Lymph % (Auto) % [place] % (Auto) % Eos % (Auto) % Baso % (Auto) % Neut # (Auto) (1.8-7.7) 10^3/u L Lymph # (Auto) (0.8-4.8) 10^3/u L [place] # (Auto) (0.2-0.9) 10^3/u L Eos # (Auto) (0.0-0.8) 10^3/u L Baso # (Auto) (0.0-0.1) 10^3/u L Nucleated RBC % (a uto) % Nucleated RBCs # /100WBC D-Dimer (0-0.59) ug/mIFE U Specimen Type Sample Site ABG pH (7.35-7.45) ABG pCO2 (35-45) mmHg ABG pO2 (80.0-100.0) mmH g ABG HCO3 (22-26) mmol/L ABG O2 Saturation ABG Base Excess (-2.0-2.0) mmol/ L [place] Test A-a O2 Gradient (5-10) mmHg Hematocrit (37-47) % Hgb O2 Saturation (95-100) % Carboxyhemoglobin (0.4-20.1) %THgb Methemoglobin (0.4-1.5) % Total Hemoglobin (12-16) g/dL Ionized Calcium (1.1-1.4) mmol/L O2 Delivery Device FiO2 % Claim Representative ID Sodium Potassium Chloride Carbon Dioxide Anion Gap BUN Creatinine GFR Calculation Glucose Calculated Osmolal ity Lactic Acid Calcium Magnesium Total Bilirubin AST ALT Alkaline Phosphata se Troponin T Baselin e Total Protein Albumin Globulin Lipase (13-60) U/L Urine Color Yellow (Yellow) Urine Appearance Clear (CLEAR) Urine pH 5 (5-7) Ur Specific Gravit y 1.020 (1.005-1.030) Urine Protein Trace (Negative) Urine Glucose (UA) Norm (Normal) Urine Ketones Negative (Negative) Urine Blood Neg (Negative) Urine Nitrate Negative (Negative) Urine Bilirubin 1+ H (Negative) Urine Urobilinogen Norm (Negative) mg/dL Ur Leukocyte Kay ase Negative (Negative) Urine RBC Rare (0-2) /hpf Urine WBC Rare (0-5) /hpf Ur Squamous Epith Cells 0-4 H (0-5) /hpf Amorphous Sediment Trace /hpf Urine Bacteria Trace (NONE) /hpf Hyaline Casts 0-4 H /lpf Urine Mucus Trace /hpf Serum Ketones (Negative) Influenza Type A A g Negative (Negative) Influenza Type B A g Negative (Negative) SARS-CoV-2 Ag (Rap id) Negative (Negative) Discharge Plan Discharge Patient Disposition: Admitted As Inpatient Admit Provider: Genesis Love Clinical Impression: Cholelithiasis, Hypertension, Chronic kidney disease, Sepsis Condition: Stable Referrals: Ramin Arciniega MD [Physician] - 06/05/20 2:45 pm (Return to surgery office in 1 week. You have an appointment on June 05 at 2:45) Christopher Murdock MD [Primary Care Provider] - 06/04/20 9:30 am (You have an appointment on June 04 at 9:30am) Discharge Diet: As Directed and Low Fat Discharge Activity: Increase activity as tolerated Patient Instructions: Dehydration - Adult, Cholelithiasis (DC), Low Fat Diet (DC) Additional Instructions: You are diagnosed with a gallstone, stone in the gallbladder, felt this was contributing to your symptoms of abdominal pain and nausea. Would recommend outpatient follow-up with Dr. Arciniega as scheduled in 1 week to discuss surgery for removal of the gallbladder. Until this time it is strongly recommended to continue with a bland, low-fat, diet. Orange, spicy or fatty foods can aggravate the gallbladder and contribute to more pain, therefore it is it essential to avoid these foods. No changes to your medications at this time. Your kidney function improved with fluids, slight increase in your kidney function on admission was likely due to dehydration. Continue to follow-up with Dr. Willett as previously scheduled Follow-up with primary care provider in 7 to 10 days Call your physician or present to the ED for any acute illness or concern Discharge Date/Time: 05/27/20 09:16 Sign Out Sign Out Data: Patient Sign Out occurred on 05/27/20 at 03:44. Patient's care was discussed, and care was transferred from to Jodi Prince. Patient Sign Out occurred on 05/27/20 at 06:32. Patient's care was discussed, and care was transferred from to Yo Akers DO. Coding Level of Care Code ED Advertising Specialist for Chg Fwd Exam Detailed Documented by User: Yo Akers DO 05/28/20 16:45 HPI - SOB/Dyspnea General: Chief Complaint: Shortness of Breath/Dyspnea Stated Complaint: feeling sick Time Seen by Provider: 05/26/20 23:52 PFSH ED PFSH: Medical History Chronic kidney disease Hyperlipidemia Hypertension Surgical History History of hysterectomy Family History Mother CAD (coronary artery disease) Father Lung disease CAD (coronary artery disease) Sister Cancer Colon cancer Social History Smoking and tobacco status: never smoked Alcohol intake: never Household members: spouse Marital status: Course Vital Signs: Vital signs: Vital Signs Temperature 98.2 F 05/28/20 14:00 Pulse Rate 66 05/28/20 14:00 Respiratory Rate 18 05/28/20 14:00 Blood Pressure 150/69 05/28/20 14:00 Pulse Oximetry 96 05/28/20 14:00 MDM - SOB/Dyspnea MDM Narrative: Medical decision making narrative: Concern for patient developing acute cholecystitis low does not appear on imaging yet today. Pat ient was started on Zosyn and given IV fluids she does have some chronic kidney disease as well and her creatinine is up to 1 5. Hypertension was negative no specific concern for COVID at this time suspect some of her sensation of shortness of breath was driven by the gallbladder issues. Will hydrate Jasmina started on antibiotics discussed with Dr. Love she will be excepting to her service. Lab Data: Labs: Lab Results 05/27/20 05/27/20 05/27/20 Range/Units 00:18 00:18 00:18 WBC 24.2 H (4.0-10.0) 10^3/ uL RBC 5.20 (4.1-5.3) 10^6/u L Hgb 15.1 (11.5-15.3) g/dL Hct 46.7 (37.0-47.0) % MCV 89.8 (81-99) fL MCH 29.0 (28.0-34.0) pg MCHC 32.3 (30.0-36.0) g/dL RDW 13.2 (12.1-15.1) % Plt Count 235 (130-400) 10^3/c mm MPV 12.9 H (7.4-10.4) fL Neut % (Auto) 83.4 % Lymph % (Auto) 9.3 % [place] % (Auto) 6.0 % Eos % (Auto) 0.5 % Baso % (Auto) 0.3 % Neut # (Auto) 20.22 H (1.8-7.7) 10^3/u L Lymph # (Auto) 2.2 (0.8-4.8) 10^3/u L [place] # (Auto) 1.4 H (0.2-0.9) 10^3/u L Eos # (Auto) 0.1 (0.0-0.8) 10^3/u L Baso # (Auto) 0.1 (0.0-0.1) 10^3/u L Nucleated RBC % (a uto) 0 % Nucleated RBCs # 0.0 /100WBC D-Dimer (0-0.59) ug/mIFE U Specimen Type Sample Site ABG pH (7.35-7.45) ABG pCO2 (35-45) mmHg ABG pO2 (80.0-100.0) mmH g ABG HCO3 (22-26) mmol/L ABG O2 Saturation ABG Base Excess (-2.0-2.0) mmol/ L [place] Test A-a O2 Gradient (5-10) mmHg Hematocrit (37-47) % Hgb O2 Saturation (95-100) % Carboxyhemoglobin (0.4-20.1) %THgb Methemoglobin (0.4-1.5) % Total Hemoglobin (12-16) g/dL Ionized Calcium (1.1-1.4) mmol/L O2 Delivery Device FiO2 % Claim Representative ID Sodium Cancelled Potassium Cancelled Chloride Cancelled Carbon Dioxide Cancelled Anion Gap Cancelled BUN Cancelled Creatinine Cancelled GFR Calculation Cancelled Glucose Cancelled Calculated Osmolal ity Cancelled Lactic Acid Cancelled Calcium Cancelled Magnesium Cancelled Total Bilirubin Cancelled AST Cancelled ALT Cancelled Alkaline Phosphata se Cancelled Troponin T Baselin e Total Protein Cancelled Albumin Cancelled Globulin Cancelled Lipase (13-60) U/L Urine Color (Yellow) Urine Appearance (CLEAR) Urine pH (5-7) Ur Specific Gravit y (1.005-1.030) Urine Protein (Negative) Urine Glucose (UA) (Normal) Urine Ketones (Negative) Urine Blood (Negative) Urine Nitrate (Negative) Urine Bilirubin (Negative) Urine Urobilinogen (Negative) mg/dL Ur Leukocyte Kay ase (Negative) Urine RBC (0-2) /hpf Urine WBC (0-5) /hpf Ur Squamous Epith Cells (0-5) /hpf Amorphous Sediment /hpf Urine Bacteria (NONE) /hpf Hyaline Casts /lpf Urine Mucus /hpf Serum Ketones (Negative) Influenza Type A A g (Negative) Influenza Type B A g (Negative) SARS-CoV-2 Ag (Rap id) (Negative) 05/27/20 05/27/20 05/27/20 Range/Units 00:18 00:18 01:00 WBC (4.0-10.0) 10^3/ uL RBC (4.1-5.3) 10^6/u L Hgb (11.5-15.3) g/dL Hct (37.0-47.0) % MCV (81-99) fL MCH (28.0-34.0) pg MCHC (30.0-36.0) g/dL RDW (12.1-15.1) % Plt Count (130-400) 10^3/c mm MPV (7.4-10.4) fL Neut % (Auto) % Lymph % (Auto) % [place] % (Auto) % Eos % (Auto) % Baso % (Auto) % Neut # (Auto) (1.8-7.7) 10^3/u L Lymph # (Auto) (0.8-4.8) 10^3/u L [place] # (Auto) (0.2-0.9) 10^3/u L Eos # (Auto) (0.0-0.8) 10^3/u L Baso # (Auto) (0.0-0.1) 10^3/u L Nucleated RBC % (a uto) % Nucleated RBCs # /100WBC D-Dimer 0.74 H (0-0.59) ug/mIFE U Specimen Type Arterial Sample Site Brachial, right ABG pH 7.38 (7.35-7.45) ABG pCO2 31.7 L (35-45) mmHg ABG pO2 97.5 (80.0-100.0) mmH g ABG HCO3 18.6 L (22-26) mmol/L ABG O2 Saturation 98.0 ABG Base Excess -5.5 L (-2.0-2.0) mmol/ L [place] Test Pos A-a O2 Gradient 1.6 L (5-10) mmHg Hematocrit 43.6 (37-47) % Hgb O2 Saturation 96.7 (95-100) % Carboxyhemoglobin 0.5 (0.4-20.1) %THgb Methemoglobin 0.9 (0.4-1.5) % Total Hemoglobin 14.2 (12-16) g/dL Ionized Calcium 1.2 (1.1-1.4) mmol/L O2 Delivery Device None FiO2 21.0 % Claim Representative ID [id number] Sodium 141.0 Potassium 3.9 Chloride Carbon Dioxide Anion Gap BUN Creatinine GFR Calculation Glucose 224.0 H Calculated Osmolal ity Lactic Acid Calcium Magnesium Total Bilirubin AST ALT Alkaline Phosphata se Troponin T Baselin e Cancelled Total Protein Albumin Globulin Lipase (13-60) U/L Urine Color (Yellow) Urine Appearance (CLEAR) Urine pH (5-7) Ur Specific Gravit y (1.005-1.030) Urine Protein (Negative) Urine Glucose (UA) (Normal) Urine Ketones (Negative) Urine Blood (Negative) Urine Nitrate (Negative) Urine Bilirubin (Negative) Urine Urobilinogen (Negative) mg/dL Ur Leukocyte Kay ase (Negative) Urine RBC (0-2) /hpf Urine WBC (0-5) /hpf Ur Squamous Epith Cells (0-5) /hpf Amorphous Sediment /hpf Urine Bacteria (NONE) /hpf Hyaline Casts /lpf Urine Mucus /hpf Serum Ketones (Negative) Influenza Type A A g (Negative) Influenza Type B A g (Negative) SARS-CoV-2 Ag (Rap id) (Negative) 05/27/20 05/27/20 05/27/20 Range/Units 02:40 02:40 03:48 WBC (4.0-10.0) 10^3/ uL RBC (4.1-5.3) 10^6/u L Hgb (11.5-15.3) g/dL Hct (37.0-47.0) % MCV (81-99) fL MCH (28.0-34.0) pg MCHC (30.0-36.0) g/dL RDW (12.1-15.1) % Plt Count (130-400) 10^3/c mm MPV (7.4-10.4) fL Neut % (Auto) % Lymph % (Auto) % [place] % (Auto) % Eos % (Auto) % Baso % (Auto) % Neut # (Auto) (1.8-7.7) 10^3/u L Lymph # (Auto) (0.8-4.8) 10^3/u L [place] # (Auto) (0.2-0.9) 10^3/u L Eos # (Auto) (0.0-0.8) 10^3/u L Baso # (Auto) (0.0-0.1) 10^3/u L Nucleated RBC % (a uto) % Nucleated RBCs # /100WBC D-Dimer (0-0.59) ug/mIFE U Specimen Type Sample Site ABG pH (7.35-7.45) ABG pCO2 (35-45) mmHg ABG pO2 (80.0-100.0) mmH g ABG HCO3 (22-26) mmol/L ABG O2 Saturation ABG Base Excess (-2.0-2.0) mmol/ L [place] Test A-a O2 Gradient (5-10) mmHg Hematocrit (37-47) % Hgb O2 Saturation (95-100) % Carboxyhemoglobin (0.4-20.1) %THgb Methemoglobin (0.4-1.5) % Total Hemoglobin (12-16) g/dL Ionized Calcium (1.1-1.4) mmol/L O2 Delivery Device FiO2 % Claim Representative ID Sodium Cancelled Potassium Cancelled Chloride Cancelled Carbon Dioxide Cancelled Anion Gap Cancelled BUN Cancelled Creatinine Cancelled GFR Calculation Cancelled Glucose Cancelled Calculated Osmolal ity Cancelled Lactic Acid 2.7 H Calcium Cancelled Magnesium Cancelled Total Bilirubin Cancelled AST Cancelled ALT Cancelled Alkaline Phosphata se Cancelled Troponin T Baselin e 18 H Total Protein Cancelled Albumin Cancelled Globulin Cancelled Lipase (13-60) U/L Urine Color (Yellow) Urine Appearance (CLEAR) Urine pH (5-7) Ur Specific Gravit y (1.005-1.030) Urine Protein (Negative) Urine Glucose (UA) (Normal) Urine Ketones (Negative) Urine Blood (Negative) Urine Nitrate (Negative) Urine Bilirubin (Negative) Urine Urobilinogen (Negative) mg/dL Ur Leukocyte Kay ase (Negative) Urine RBC (0-2) /hpf Urine WBC (0-5) /hpf Ur Squamous Epith Cells (0-5) /hpf Amorphous Sediment /hpf Urine Bacteria (NONE) /hpf Hyaline Casts /lpf Urine Mucus /hpf Serum Ketones (Negative) Influenza Type A A g (Negative) Influenza Type B A g (Negative) SARS-CoV-2 Ag (Rap id) (Negative) 05/27/20 05/27/20 05/27/20 Range/Units 03:48 03:48 03:48 WBC (4.0-10.0) 10^3/ uL RBC (4.1-5.3) 10^6/u L Hgb (11.5-15.3) g/dL Hct (37.0-47.0) % MCV (81-99) fL MCH (28.0-34.0) pg MCHC (30.0-36.0) g/dL RDW (12.1-15.1) % Plt Count (130-400) 10^3/c mm MPV (7.4-10.4) fL Neut % (Auto) % Lymph % (Auto) % [place] % (Auto) % Eos % (Auto) % Baso % (Auto) % Neut # (Auto) (1.8-7.7) 10^3/u L Lymph # (Auto) (0.8-4.8) 10^3/u L [place] # (Auto) (0.2-0.9) 10^3/u L Eos # (Auto) (0.0-0.8) 10^3/u L Baso # (Auto) (0.0-0.1) 10^3/u L Nucleated RBC % (a uto) % Nucleated RBCs # /100WBC D-Dimer (0-0.59) ug/mIFE U Specimen Type Sample Site ABG pH (7.35-7.45) ABG pCO2 (35-45) mmHg ABG pO2 (80.0-100.0) mmH g ABG HCO3 (22-26) mmol/L ABG O2 Saturation ABG Base Excess (-2.0-2.0) mmol/ L [place] Test A-a O2 Gradient (5-10) mmHg Hematocrit (37-47) % Hgb O2 Saturation (95-100) % Carboxyhemoglobin (0.4-20.1) %THgb Methemoglobin (0.4-1.5) % Total Hemoglobin (12-16) g/dL Ionized Calcium (1.1-1.4) mmol/L O2 Delivery Device FiO2 % Claim Representative ID Sodium 138 Potassium 4.1 Chloride 103 Carbon Dioxide 18 L Anion Gap 21.1 H BUN 33 H Creatinine 2.3 H GFR Calculation Not Reportable Glucose 154 H Calculated Osmolal ity 286 Lactic Acid Calcium 9.5 Magnesium 2.1 Total Bilirubin 0.4 AST 18 ALT 12 Alkaline Phosphata se 107 H Troponin T Baselin e Total Protein 7.3 Albumin 4.2 Globulin 3.1 Lipase 30 (13-60) U/L Urine Color (Yellow) Urine Appearance (CLEAR) Urine pH (5-7) Ur Specific Gravit y (1.005-1.030) Urine Protein (Negative) Urine Glucose (UA) (Normal) Urine Ketones (Negative) Urine Blood (Negative) Urine Nitrate (Negative) Urine Bilirubin (Negative) Urine Urobilinogen (Negative) mg/dL Ur Leukocyte Kay ase (Negative) Urine RBC (0-2) /hpf Urine WBC (0-5) /hpf Ur Squamous Epith Cells (0-5) /hpf Amorphous Sediment /hpf Urine Bacteria (NONE) /hpf Hyaline Casts /lpf Urine Mucus /hpf Serum Ketones Negative (Negative) Influenza Type A A g (Negative) Influenza Type B A g (Negative) SARS-CoV-2 Ag (Rap id) (Negative) 05/27/20 05/27/20 05/27/20 Range/Units 04:54 05:30 05:45 WBC (4.0-10.0) 10^3/ uL RBC (4.1-5.3) 10^6/u L Hgb (11.5-15.3) g/dL Hct (37.0-47.0) % MCV (81-99) fL MCH (28.0-34.0) pg MCHC (30.0-36.0) g/dL RDW (12.1-15.1) % Plt Count (130-400) 10^3/c mm MPV (7.4-10.4) fL Neut % (Auto) % Lymph % (Auto) % [place] % (Auto) % Eos % (Auto) % Baso % (Auto) % Neut # (Auto) (1.8-7.7) 10^3/u L Lymph # (Auto) (0.8-4.8) 10^3/u L [place] # (Auto) (0.2-0.9) 10^3/u L Eos # (Auto) (0.0-0.8) 10^3/u L Baso # (Auto) (0.0-0.1) 10^3/u L Nucleated RBC % (a uto) % Nucleated RBCs # /100WBC D-Dimer (0-0.59) ug/mIFE U Specimen Type Sample Site ABG pH (7.35-7.45) ABG pCO2 (35-45) mmHg ABG pO2 (80.0-100.0) mmH g ABG HCO3 (22-26) mmol/L ABG O2 Saturation ABG Base Excess (-2.0-2.0) mmol/ L [place] Test A-a O2 Gradient (5-10) mmHg Hematocrit (37-47) % Hgb O2 Saturation (95-100) % Carboxyhemoglobin (0.4-20.1) %THgb Methemoglobin (0.4-1.5) % Total Hemoglobin (12-16) g/dL Ionized Calcium (1.1-1.4) mmol/L O2 Delivery Device FiO2 % Claim Representative ID Sodium Potassium Chloride Carbon Dioxide Anion Gap BUN Creatinine GFR Calculation Glucose Calculated Osmolal ity Lactic Acid Calcium Magnesium Total Bilirubin AST ALT Alkaline Phosphata se Troponin T Baselin e Total Protein Albumin Globulin Lipase (13-60) U/L Urine Color Yellow (Yellow) Urine Appearance Clear (CLEAR) Urine pH 5 (5-7) Ur Specific Gravit y 1.020 (1.005-1.030) Urine Protein Trace (Negative) Urine Glucose (UA) Norm (Normal) Urine Ketones Negative (Negative) Urine Blood Neg (Negative) Urine Nitrate Negative (Negative) Urine Bilirubin 1+ H (Negative) Urine Urobilinogen Norm (Negative) mg/dL Ur Leukocyte Kay ase Negative (Negative) Urine RBC Rare (0-2) /hpf Urine WBC Rare (0-5) /hpf Ur Squamous Epith Cells 0-4 H (0-5) /hpf Amorphous Sediment Trace /hpf Urine Bacteria Trace (NONE) /hpf Hyaline Casts 0-4 H /lpf Urine Mucus Trace /hpf Serum Ketones (Negative) Influenza Type A A g Negative (Negative) Influenza Type B A g Negative (Negative) SARS-CoV-2 Ag (Rap id) Negative (Negative) Discharge Plan Discharge Patient Disposition: Admitted As Inpatient Admit Provider: Genesis Love Clinical Impression: Cholelithiasis, Hypertension, Chronic kidney disease, Sepsis Condition: Stable Referrals: Ramin Arciniega MD [Physician] - 06/05/20 2:45 pm (Return to surgery office in 1 week. You have an appointment on June 05 at 2:45) Christopher Murdock MD [Primary Care Provider] - 06/04/20 9:30 am (You have an appointment on June 04 at 9:30am) Discharge Diet: As Directed and Low Fat Discharge Activity: Increase activity as tolerated Patient Instructions: Dehydration - Adult, Cholelithiasis (DC), Low Fat Diet (DC) Additional Instructions: You are diagnosed with a gallstone, stone in the gallbladder, felt this was contributing to your symptoms of abdominal pain and nausea. Would recommend outpatient follow-up with Dr. Arciniega as scheduled in 1 week to discuss surgery for removal of the gallbladder. Until this time it is strongly recommended to continue with a bland, low-fat, diet. Orange, spicy or fatty foods can aggravate the gallbladder and contribute to more pain, therefore it is it essential to avoid these foods. No changes to your medications at this time. Your kidney function improved with fluids, slight increase in your kidney function on admission was likely due to dehydration. Continue to follow-up with Dr. Willett as previously scheduled Follow-up with primary care provider in 7 to 10 days Call your physician or present to the ED for any acute illness or concern Discharge Date/Time: 05/27/20 09:16 Sign Out Sign Out Data: Patient Sign Out occurred on 05/27/20 at 03:44. Patient's care was discussed, and care was transferred from to Jodi Prince. Patient Sign Out occurred on 05/27/20 at 06:32. Patient's care was discussed, and care was transferred from to Yo Akers DO. Coding Level of Care Code ED Advertising Specialist for Chg Fwd Exam Detailed
[2020-05-27 00:33] LABS: Basophils # 0.1 10^3/uL (0.0-0.1); Basophils % 0.3 %; Eosinophils # 0.1 10^3/uL (0.0-0.8); Eosinophils % 0.5 %; Hematocrit 46.7 % (37.0-47.0); Hemoglobin 15.1 g/dL (11.5-15.3); Lymphocytes # 2.2 10^3/uL (0.8-4.8); Lymphocytes % 9.3 %; Mean Corpuscular HGB Conc 32.3 g/dL (30.0-36.0); Mean Corpuscular Volume 89.8 fL (81-99); Mean Platelet Volume 12.9 fL (7.4-10.4); Monocytes # 1.4 10^3/uL (0.2-0.9); Neutrophils # 20.22 10^3/uL (1.8-7.7); Neutrophils % 83.4 %; Nucleated Red Blood Cells % 0 %; Platelet Count 235 10^3/cmm (130-400); Red Cell Distribution Width 13.2 % (12.1-15.1); White Blood Count 24.2 10^3/uL (4.0-10.0)
[2020-05-27 00:44] LABS: D Dimer 0.74 ug/mIFEU (0-0.59)
[2020-05-27 01:08] LABS: ABG PCO2 31.7 mmHg (35-45); ABG PH Result 7.38 (7.35-7.45); Alveolar-Arterial Oxygen Gradi 1.6 mmHg (5-10); Arterial Blood Gas Hematocrit 43.6 % (37-47); Base Excess ABG -5.5 mmol/L (-2.0-2.0); Blood Gas Allen Test Pos; Blood Gas Sample Site Brachial, right; Blood Gas Sample Type Arterial; Carboxyhemoglobin 0.5 %THgb (0.4-20.1); HCO3 ABG 18.6 mmol/L (22-26); HGB O2 Sat 96.7 % (95-100); Ionized Calcium Level - ABG 1.2 mmol/L (1.1-1.4); Methemoglobin 0.9 % (0.4-1.5); PO2 ABG 97.5 mmHg (80.0-100.0); Potassium Level - ABG 3.9 mmol/L (3.5-5.0); Total Hemoglobin 14.2 g/dL (12-16)
--- NOTE | 2020-05-27 02:03 | ECG_ITS ---
[facility] Test Date: 2020-05-27 Pat Name: Karina Grant Department: Room: Gender: Female Financial Analysis Manager: : 1945 Requested By: Marleni Diego Order Number: [id number] Arnel MD: Jovi Soriano M.D. Measurements Intervals [place] Rate: 71 P: 139 MN: 155 QRS: -33 QRSD: 145 T: 32 QT: 443 QTc: 483 Interpretive Statements ECTOPIC ATRIAL RHYTHM POSSIBLE LEFT ATRIAL ENLARGEMENT [-0.1mV P WAVE IN V1/V2] LEFT AXIS DEVIATION [QRS AXIS < -30] RIGHT BUNDLE BRANCH BLOCK [120+ ms QRS DURATION, UPRIGHT V1, 40+ ms S IN I/aVL/V4/V5/V6] LEFT VENTRICULAR HYPERTROPHY AND ST-T CHANGE [VOLTAGE CRITERIA PLUS ST/T ABNORMALITY] POSSIBLE SEPTAL MYOCARDIAL INFARCTION , OF INDETERMINATE AGE [30 ms Q WAVE IN V1/V2] PROBABLE LATERAL MYOCARDIAL INFARCTION , OF INDETERMINATE AGE [35 ms Q WAVE IN I/aVL/V5/V6] No previous ECG available for comparison Electronically Signed On 05-27-2020 20:52:40 CDT by Jovi Soriano M.D. [email or web address]
[2020-05-27 03:20] LABS: Lactic Sepsis W/Reflex 2.7 mmol/L (0.5-2.2)
[2020-05-27] MEDS: sodium chloride 0.9% 1,000 ML 999 ML IV (03:43)
[2020-05-27 04:09] LABS: Ketone (Acetest) Serum Negative (Negative)
--- NOTE | 2020-05-27 04:12 | CTR_ITS ---
PROCEDURE INFORMATION: Exam: CT Chest Without Contrast Exam date and time: 05/27/2020 4:25 AM Age: 75 years old Clinical indication: Abdominal pain; Generalized; Chest pain; Type not specified; Prior surgery; Surgery date: 6+ months; Surgery type: Hysterectomy; Patient HX: Abdominal cramping, with shortness of breath, diarrhea, nausea and vomiting. Weakness, sweating and chills last night TECHNIQUE: Imaging protocol: Computed tomography of the chest without contrast. Radiation optimization: All CT scans at this facility use at least one of these dose optimization techniques: automated exposure control; mA and/or kV adjustment per patient size (includes targeted exams where dose is matched to clinical indication); or iterative reconstruction. COMPARISON: US Renal Kidney Structu* [id number] 04/17/2015 2:15 PM RADIATION DOSE METRICS: Total DLP (mGy-cm): 1123.56 FINDINGS: Lungs: Slight right and minimal left dependent atelectasis. 4 mm calcified granuloma in the right middle lobe. No consolidation. Pleural space: No pleural fluid or pneumothorax. Heart: Unremarkable. No cardiomegaly. No pericardial effusion. Mediastinal space: Nondistended moderate hiatal hernia. Aorta: Unremarkable. No aortic aneurysm. Lymph nodes: Slightly calcified mediastinal nodes. Bones/joints: Very small calcification along the left humeral head. Small subchondral defects in the right humeral head. Only 11 ribs bilaterally. Old right rib fractures. Old compression fractures. Degeneration of a few discs. Soft tissues: No acute soft tissue finding. IMPRESSION: No significant acute finding. Moderate hiatal hernia. Other findings detailed above. PROCEDURE INFORMATION: Exam: CT Abdomen And Pelvis Without Contrast Exam date and time: 05/27/2020 4:25 AM Age: 75 years old Clinical indication: Abdominal pain; Generalized; Chest pain; Type not specified; Prior surgery; Surgery date: 6+ months; Surgery type: Hysterectomy; Patient HX: Abdominal cramping, with shortness of breath, diarrhea, nausea and vomiting. Weakness, sweating and chills last night TECHNIQUE: Imaging protocol: Computed tomography of the abdomen and pelvis without contrast. Radiation optimization: All CT scans at this facility use at least one of these dose optimization techniques: automated exposure control; mA and/or kV adjustment per patient size (includes targeted exams where dose is matched to clinical indication); or iterative reconstruction. COMPARISON: US Renal Kidney Structu* [id number] 04/17/2015 2:15 PM RADIATION DOSE METRICS: Total DLP (mGy-cm): 1123.56 FINDINGS: Liver: Unremarkable liver. Gallbladder and bile ducts: 1.7 x 2.6 cm stone in the gallbladder. No gallbladder wall thickening or biliary ductal dilatation. Pancreas: Unremarkable. No ductal dilation. Spleen: No splenomegaly. Adrenals: No adrenal mass. Kidneys and ureters: Continued cortical thinning in and decreased size of the right kidney, with the cortical thinning greatest in the upper pole. Minimal right and no left hydronephrosis. Stomach and bowel: Elongation of the sigmoid colon into the left middle to upper abdomen. Moderate sigmoid and descending diverticulosis. No obstruction. Appendix: No evidence of appendicitis. Intraperitoneal space: No free air. No significant fluid collection. Vasculature: Moderate right ovarian varix. Slight atherosclerosis. No aortic aneurysm. Lymph nodes: No enlarged nodes. Bladder: Unremarkable as visualized. Reproductive: Hysterectomy. Bones/joints: S1 transitional vertebra. Degeneration of several discs. Suspicion of a calcified central focal disc protrusion at L1-L2. Minimal spondylolisthesis at L5-S1. Soft tissues: Evidence of prior buttock injections. CT/CT chest abd pel wo con IMPRESSION: 1. Large gallstone. 2. Continued mild right renal atrophy. 3. Moderate right ovarian varix. Other findings detailed above. Radiation Dose CTDIVOL = (mGy): DLP = 1123.56~1123.56 (mGy-cm)
[2020-05-27 04:13] LABS: Alanine Aminotransferase 12 U/L (0-33); Albumin Level 4.2 g/dL (3.5-5.2); Alkaline Phosphatase 107 IU/L (35-105); Anion Gap 21.1 (5-19); Aspartate Amino Transferase 18 U/L (0-32); Blood Urea Nitrogen 33 mg/dL (8-23); Calcium 9.5 mg/dL (8.5-10.5); Carbon Dioxide 18 mmol/L (22-29); Chloride 103 mmol/L (98-107); Globulin 3.1 g/dL (1.3-4.6); Glucose 154 mg/dL (65-115); Magnesium 2.1 mg/dL (1.7-2.3); Osmolality Calculated 286 mOsm/kg (285-295); Potassium 4.1 mmol/L (3.5-5.1); Sodium 138 mmol/L (136-145); Total Bilirubin 0.4 mg/dL (0.15-1.2); Total Protein 7.3 g/dL (6.6-8.7)
[2020-05-27 04:16] LABS: Troponin(5th) Baseline 18 ng/L (0-10)
[2020-05-27 04:53] LABS: Reflex Lactate Order REFLEX LACTIC ORDERD
[2020-05-27 05:38] LABS: Influenza A by IFA Negative (Negative); Influenza B by IFA Negative (Negative)
[2020-05-27 05:56] LABS: SARS Covid-2 Antigen Negative (Negative)
--- NOTE | 2020-05-27 06:03 | ECG_ITS ---
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 Measurements Intervals [place] Rate: 82 P: 124 KS: 174 QRS: 234 QRSD: 124 T: 165 QT: 399 QTc: 468 Interpretive Statements SINUS RHYTHM ARM LEADS REVERSED [INVERTED P AND QRS IN I] Compared to ECG 05/27/2020 00:02:30 Ectopic atrial rhythm no longer present Left-axis deviation no longer present Right bundle-branch block no longer present Left ventricular hypertrophy no longer present ST (T wave) deviation no longer present Myocardial infarct finding no longer present Electronically Signed On 05-27-2020 20:52:57 CDT by Jovi Soriano M.D. [id number]
[2020-05-27 06:29] LABS: Add Urine Microscopic? YES; Bilirubin Urine 1+ (Negative); Blood Urine Neg (Negative); Glucose Urine UA Norm (Normal); Ketones Urine Negative (Negative); Leukocyte Esterase Urine Negative (Negative); Nitrate Urine Negative (Negative); Protein Urine Trace (Negative); Urine Appearance Clear (CLEAR); Urine Color Yellow (Yellow); Urobilinogen Urine Norm (Negative); pH Urine 5 (5-7)
[2020-05-27 06:50] LABS: Bacteria Urine TRACE /hpf; RBC Urine RARE /hpf (0-2); Squamous Epithelial Cell Urine 0-4 /hpf (0-5); WBC Urine RARE /hpf (0-5)
[2020-05-27 06:51] LABS: Add Urine Culture? No; Amorphous Sediment Urine TRACE /hpf; Hyaline Casts Urine 0-4 /lpf; Mucus Urine TRACE /hpf
--- NOTE | 2020-05-27 07:07 | US_ITS ---
WS: [id number] RIGHT UPPER QUADRANT ULTRASOUND HISTORY: cholelithiasis COMPARISON: 05/27/2020 CT Liver: 12.2 cm in length. Normal size liver with mild heterogeneity. Mildly coarsened echotexture wit h no mass or bile duct dilatation. Gallbladder: Large central gallstone measures 3.2 cm in diameter. No adjacent pericholecystic fluid o r gallbladder wall thickening. CBD: 0.5 cm Pancreas: Tail is obscured by bowel gas. Remaining pancreas is negative. Right kidney: 5.1 cm in length. Small kidney with increased echogenicity. Poor cortical medullary dif ferentiation. No hydronephrosis or mass. Aorta and IVC: Unremarkable abdominal aorta and IVC. No ascites. US/US gall bladder [id number] IMPRESSION: 1. Cholelithiasis. Large stone in the gallbladder without additional evidence for acute cholecystitis. 2. Known moderate RIGHT renal atrophy.
--- NOTE | 2020-05-27 07:17 | PC.NURSE ---
Received report assumed care. Dr Akers in room with pt. completing assessment No changes noted from report. No current vital or maintenance charting done since 2347 on 05/26/09 Vitals and maintenance charting on day shift.
[2020-05-27] MEDS: piperacillin-tazobactam 3.375 GM in sodium chloride 0.9% (plus) 50 ML IV (07:31)
[2020-05-27 08:52] LABS: Lipase 30 U/L (13-60)
--- NOTE | 2020-05-27 09:19 | PM.HP ---
Providers/Chief Complaint Admitting Physician: Genesis Love DO Primary Care Provider: Christopher Murdock MD Chief Complaint: feeling sick History of Present Illness Karina Grant is a 75 year old female with a past medical history of hypertension and chronic kidney disease that presented to the emergency department today for right upper quadrant abdominal pain, nausea vomiting and shortness of breath. Patient stated that her symptoms started at 9:00 last night. She stated that for dinner she had chicken and potato and couple of hours later began having severe pain in her abdomen. She reported that she shortly afterward began having intractable nausea vomiting and can feel her stomach pain continuing to worsen. She reported that she felt gas and sensation that she was going to have diarrhea. She then began having severe shortness of breath that she cannot take a deep breath in. This caused her to breathe shallow and rapidly, therefore her brought her into the ER for further evaluation and treatment. She reported that prior to this episode she had been feeling well with no concerns. She stated that she has not had any fevers at home, no cough or respiratory symptoms. No chest pain. Patient reported no recent sick contacts, no contact with any when under investigation for COVID-19, no contact with any positive patients that she is aware of. She stated that her last dose of medication was yesterday morning, was unable to take her nighttime medications due to her intractable nausea vomiting Patient was seen and evaluated in the emergency department noted to have concern for developing acute cholecystitis with large gallstone. Patient had a rapid antigen COVID testing which was negative, send out PCR was also collected. Review of Systems Const: Denies: fever(s) or chills Eyes: Denies: change in vision ENMT: Denies: nasal congestion Card: Denies: chest pain, palpitations or edema Resp: Reports: dyspnea (That is now improved with improvement of abdominal pain); Denies: productive cough or hemoptysis GI: Reports: abdominal pain, nausea, vomiting and diarrhea; Denies: constipation, hematochezia or melena : Denies: dysuria or hematuria Musc: Denies: extremity pain or muscle cramps Skin/Breast: Denies: rash or new lesions Neuro: Denies: headache(s) or dizziness Psych: Denies: anxiety or depression Endo: Denies: polyuria or hot flashes Fox/Lymph: Denies: easy bruising or easy bleeding Medications/Allergies Home Medications Medication Instructions Recorded Confirmed Last Taken Type cholecalciferol (vitamin D3) 50 mcg PO DAILY 05/27/20 05/27/20 05/26/20 History [Vitamin D3] ezetimibe 10 mg PO DAILY 05/27/20 05/27/20 05/26/20 History felodipine 10 mg PO DAILY 05/27/20 05/27/20 05/26/20 History fesoterodine [Toviaz] 8 mg PO DAILY 05/27/20 05/27/20 05/26/20 History lisinopril 5 mg PO DAILY 05/27/20 05/27/20 05/26/20 History metoprolol tartrate 100 mg PO BID 05/27/20 05/27/20 05/26/20 History rosuvastatin 5 mg PO DAILY 05/27/20 05/27/20 05/26/20 History Allergies Allergy/AdvReac Type Severity Reaction Status Date / Time No Known Allergies Allergy Verified 05/27/20 06:54 PFSH Acute PFSH: Medical History Chronic kidney disease Hyperlipidemia Hypertension Surgical History History of hysterectomy Family History Mother CAD (coronary artery disease) Father Lung disease CAD (coronary artery disease) Sister Cancer Colon cancer Social History Smoking and tobacco status: never smoked Alcohol intake: never Substance/Drug Use: never Household members: spouse Marital status: Vitals/I&O/Wt Last Vital Signs Pulse 83 05/27/20 09:15 Resp 16 05/27/20 09:15 BP 115/58 05/27/20 09:15 Pulse Ox 100 05/27/20 09:15 Weight last 48 hrs Weight 60.781 kg Physical Exam Const: COMMON NORMALS: patient oriented x3 and alert GENERAL APPEARANCE: cooperative ORIENTATION/CONSCIOUSNESS: Yes awake, Yes oriented to person, Yes oriented to place and Yes oriented to time HENMT: COMMON NORMALS: normocephalic and atraumatic HEAD & SCALP: normocephalic and atraumatic Eye: COMMON NORMALS: Equal, round and reactive pupils present PUPIL: Yes Equal, round and reactive pupils present Neck/C-Spine: COMMON NORMALS: supple GENERAL: Yes normal visual inspection Resp: COMMON NORMALS: normal respiratory effort and clear to auscultation bilaterally EFFORT & INSPECTION: Yes able to speak in complete sentences AUSCULTATION: clear to auscultation bilaterally, no rhonchi and no wheezes Cardio: COMMON NORMALS: regular rate, regular rhythm and No murmurs present (Cardio) RATE: regular rate RHYTHM: regular rhythm GI: INSPECTION: No abdominal distension AUSCULTATION: Yes normoactive bowel sounds PALPATION: Yes Soft to palpation OTHER: Tenderness to palpation in the right upper quadrant Extremity: COMMON NORMALS: no clubbing, cyanosis or edema and no calf tenderness Neuro: COMMON NORMALS: patient oriented x3, CN's II-XII intact bilaterally, moves all extremities and no focal motor deficits SENSORIUM/ORIENTATION: Yes alert, Yes oriented to person, Yes oriented to place and Yes oriented to time SPEECH: speech normal Psych: COMMON NORMALS: mental status grossly normal and cooperative Skin: COMMON NORMALS: no rashes or lesions noted GENERAL SKIN EXAM: no rashes or lesions noted Urinary Catheter Management^: [place]: Cath Placed During This Visit: yes Reason for Continuing Indwelling Catheter: Acute Urinary Retention or Obstruction Urinary Catheter Date of Insertion: 05/27/20 Urinary Catheter Time of Insertion: 05:30 Data : 05/27/20 00:18 05/27/20 03:48 Micro: Microbiology 05/27/20 02:40 Blood Culture - Preliminary Blood SPECIMEN COLLECTED 05/27/20 00:18 Blood Culture - Preliminary Blood SPECIMEN COLLECTED Other CT: I personally reviewed and interpreted this imaging study as follows: Radiologist's impression: CT chest/Abdomen/Pelvis FINDINGS: Lungs: Slight right and minimal left dependent atelectasis. 4 mm calcified granuloma in the right middle lobe. No consolidation. Pleural space: No pleural fluid or pneumothorax. Heart: Unremarkable. No cardiomegaly. No pericardial effusion. Mediastinal space: Nondistended moderate hiatal hernia. Aorta: Unremarkable. No aortic aneurysm. Lymph nodes: Slightly calcified mediastinal nodes. Bones/joints: Very small calcification along the left humeral head. Small subchondral defects in the right humeral head. Only 11 ribs bilaterally. Old right rib fractures. Old compression fractures. Degeneration of a few discs. Soft tissues: No acute soft tissue finding. IMPRESSION: No significant acute finding. Moderate hiatal hernia. Other findings detailed above. FINDINGS: Liver: Unremarkable liver. Gallbladder and bile ducts: 1.7 x 2.6 cm stone in the gallbladder. No gallbladder wall thickening or biliary ductal dilatation. Pancreas: Unremarkable. No ductal dilation. Spleen: No splenomegaly. Adrenals: No adrenal mass. Kidneys and ureters: Continued cortical thinning in and decreased size of the right kidney, with the cortical thinning greatest in the upper pole. Minimal right and no left hydronephrosis. Stomach and bowel: Elongation of the sigmoid colon into the left middle to upper abdomen. Moderate sigmoid and descending diverticulosis. No obstruction. Appendix: No evidence of appendicitis. Intraperitoneal space: No free air. No significant fluid collection. Vasculature: Moderate right ovarian varix. Slight atherosclerosis. No aortic aneurysm. Lymph nodes: No enlarged nodes. Bladder: Unremarkable as visualized. Reproductive: Hysterectomy. Bones/joints: S1 transitional vertebra. Degeneration of several discs. Suspicion of a calcified central focal disc protrusion at L1-L2. Minimal spondylolisthesis at L5-S1. Soft tissues: Evidence of prior buttock injections. CT/CT chest abd pel wo con IMPRESSION: 1. Large gallstone. 2. Continued mild right renal atrophy. 3. Moderate right ovarian varix. Other findings detailed above. US: I personally reviewed and interpreted this imaging study as follows: Radiologist's impression: RUQ US 1. Cholelithiasis. Large stone in the gallbladder without additional evidence for acute cholecystitis. 2. Known moderate RIGHT renal atrophy. CXR: I personally reviewed and interpreted this imaging study as follows: Radiologist's impression: FINDINGS: The cardiac silhouette is normal in size. The mediastinal contours are normal. The pulmonary vascularity is normal. The lungs are clear of infiltrate. There is no effusion or pneumothorax. No acute bony abnormality is seen. Tiny retrocardiac hiatal hernia. XR/XR chest 1V portable [id number] IMPRESSION: No acute pulmonary disease. A&P Assessment and plan (1) Sepsis: With concern for developing acute cholecystitis General surgery, Dr. Arciniega consulted, appreciate recommendations and assistance in patient's care Patient has large gallbladder stone, CT scan of the abdomen and pelvis and gallbladder ultrasound as noted above We will continue on Rocephin 1 g every 24hr Blood culture and lactic acid ordered Status: Acute (2) Cholelithiasis: Large gallstone is noted above, will follow up with general surgery recommendations NPO at this time until surgical evaluation Status: Acute (3) Chronic kidney disease: Slight increase in BUN and creatinine, baseline appears to be around 1.5, however uncertain as patient has not had any labs since 2019 at our facility Followed by Dr. Willett, nephrology Caution with nephrotoxic medications, patient is on lisinopril 5 mg daily at home, will hold at this time until renal function improves Status: Acute (4) Hyperlipidemia: Hold home Zetia Continue on rosuvastatin, unable to tolerate atorvastatin in the past Status: Acute (5) Hypertension: Blood pressure within good control at this time, holding lisinopril due to slight increase in BUN and creatinine, continue on metoprolol 100 mg twice daily Status: Acute Additional A&P Information COVID-19 testing: Due to patient having shortness of breath and GI symptoms she was tested for COVID 19 using rapid antigen testing, this was negative, however was also tested with PCR, will discuss with Dr. Arciniega, believe symptoms are related to above and no specific concern for COVID 19. Diet: NPO DVT ppx: SCDs until surgical evaluation, if patient does not require surgery today we will start on heparin for DVT prophylaxis Code status: Full code, discussed with patient at time of admission in the ED Attestations Medical Necessity Statement*: Patient requires hospitalization due to concern for sepsis with concern for developing cholecystitis with large gallbladder stone. Expected stay greater than 2 midnights. Coding Level of Care Code Acute Quality Controller for Christen Fwd Exam Comprehensive Diagnoses Sepsis A41.9 Cholelithiasis K80.20 Chronic kidney disease N18.9 Hyperlipidemia E78.5 Hypertension I10
--- NOTE | 2020-05-27 11:18 | P.CONIM_ITS ---
Providers/Reason For Consult Consulting Physican/Specialty*: Ramin Arciniega MD Reason for Consult*: Cholelithiasis Requesting Physcian: Dr. Akers Attending Physician: Genesis Love DO Primary Care Provider: Christopher Murdock MD History of Present Illness History of Present Illness Chief Complaint: History of nausea History of present illness: Karina Grant is a 75 year old female presents to the emergency department with history of worsening nausea and rumbling of her bowel. Patient reports that she had supper yesterday about 3 PM and about 9 PM she started to have nausea with worsening GERD but she did not recall any abdominal pain yet she did have some rumbling and felt that she is going to have diarrhea. Patient denies any fevers or chills and she is aware that she has history of gallbladder stone but she was told before as long as does not bother you there is no need for surgery. Patient reports that she does not have any fatty dyspepsia and her dinner was composed of baked chicken and baked sweet potatoes. Patient was admitted on the hospitalist service with the elevated WBC count and images showed cholelithiasis without evidence of cholecystitis. General surgery was consulted for further evaluation patient was tested negative per COVID-19 rapid test in the ER. CT scan of the chest abdomen and pelvis showed: FINDINGS: Lungs: Slight right and minimal left dependent atelectasis. 4 mm calcified granuloma in the right middle lobe. No consolidation. Pleural space: No pleural fluid or pneumothorax. Heart: Unremarkable. No cardiomegaly. No pericardial effusion. Mediastinal space: Nondistended moderate hiatal hernia. Aorta: Unremarkable. No aortic aneurysm. Lymph nodes: Slightly calcified mediastinal nodes. Bones/joints: Very small calcification along the left humeral head. Small subchondral defects in the right humeral head. Only 11 ribs bilaterally. Old right rib fractures. Old compression fractures. Degeneration of a few discs. Soft tissues: No acute soft tissue finding. IMPRESSION: No significant acute finding. Moderate hiatal hernia. Other findings detailed above. PROCEDURE INFORMATION: Exam: CT Abdomen And Pelvis Without Contrast Exam date and time: 05/27/2020 4:25 AM Age: 75 years old Clinical indication: Abdominal pain; Generalized; Chest pain; Type not specified; Prior surgery; Surgery date: 6+ months; Surgery type: Hysterectomy; Patient HX: Abdominal cramping, with shortness of breath, diarrhea, nausea and vomiting. Weakness, sweating and chills last night FINDINGS: Liver: Unremarkable liver. Gallbladder and bile ducts: 1.7 x 2.6 cm stone in the gallbladder. No gallbladder wall thickening or biliary ductal dilatation. Pancreas: Unremarkable. No ductal dilation. Spleen: No splenomegaly. Adrenals: No adrenal mass. Kidneys and ureters: Continued cortical thinning in and decreased size of the right kidney, with the cortical thinning greatest in the upper pole. Minimal right and no left hydronephrosis. Stomach and bowel: Elongation of the sigmoid colon into the left middle to upper abdomen. Moderate sigmoid and descending diverticulosis. No obstruction. Appendix: No evidence of appendicitis. Intraperitoneal space: No free air. No significant fluid collection. Vasculature: Moderate right ovarian varix. Slight atherosclerosis. No aortic aneurysm. Lymph nodes: No enlarged nodes. Bladder: Unremarkable as visualized. Reproductive: Hysterectomy. Bones/joints: S1 transitional vertebra. Degeneration of several discs. Suspicion of a calcified central focal disc protrusion at L1-L2. Minimal spondylolisthesis at L5-S1. Soft tissues: Evidence of prior buttock injections. CT/CT chest abd pel wo con IMPRESSION: 1. Large gallstone. 2. Continued mild right renal atrophy. 3. Moderate right ovarian varix. Other findings detailed above. Ultrasound of the liver and gallbladder showed: Liver: 12.2 cm in length. Normal size liver with mild heterogeneity. Mildly coarsened echotexture with no mass or bile duct dilatation. Gallbladder: Large central gallstone measures 3.2 cm in diameter. No adjacent pericholecystic fluid or gallbladder wall thickening. CBD: 0.5 cm Pancreas: Tail is obscured by bowel gas. Remaining pancreas is negative. Right kidney: 5.1 cm in length. Small kidney with increased echogenicity. Poor cortical medullary differentiation. No hydronephrosis or mass. Aorta and IVC: Unremarkable abdominal aorta and IVC. No ascites. 1. Cholelithiasis. Large stone in the gallbladder without additional evidence for acute cholecystitis. 2. Known moderate RIGHT renal atrophy. Review of Systems General: Reports: 10 or more systems reviewed and unremarkable except in HPI and below Meds/Allergies Home Medications and Allergies Home Medications Medication Instructions Recorded Confirmed Last Taken Type cholecalciferol (vitamin D3) 50 mcg PO DAILY 05/27/20 05/27/20 05/26/20 History [Vitamin D3] ezetimibe 10 mg PO DAILY 05/27/20 05/27/20 05/26/20 History felodipine 10 mg PO DAILY 05/27/20 05/27/20 05/26/20 History fesoterodine [Toviaz] 8 mg PO DAILY 05/27/20 05/27/20 05/26/20 History lisinopril 5 mg PO DAILY 05/27/20 05/27/20 05/26/20 History metoprolol tartrate 100 mg PO BID 05/27/20 05/27/20 05/26/20 History rosuvastatin 5 mg PO DAILY 05/27/20 05/27/20 05/26/20 History Allergies Allergy/AdvReac Type Severity Reaction Status Date / Time No Known Allergies Allergy Verified 05/27/20 06:54 PFSH Acute PFSH: Medical History Chronic kidney disease Hyperlipidemia Hypertension Surgical History History of hysterectomy Family History Mother CAD (coronary artery disease) Father Lung disease CAD (coronary artery disease) Sister Cancer Colon cancer Social History Smoking and tobacco status: never smoked Alcohol intake: never Substance/Drug Use: never Household members: spouse Marital status: Vitals/I&O/Wt Last Vital Signs Temp 98.9 F 05/27/20 09:50 Pulse 77 05/27/20 09:50 Resp 18 05/27/20 09:50 BP 117/71 05/27/20 09:50 Pulse Ox 97 05/27/20 09:50 Weight last 48 hrs Weight 134 lb Physical Exam Narrative: EXAM NARRATIVE: Patient is conscious alert oriented X3 BMI 27.1 Head and neck examination PERRLA no masses no cervical lymphadenopathy no jaundice Cardiac examination audible S1-S2 no murmurs no gallops no arrhythmias Chest is clear bilateral,abscence of Rhonchi or wheezes,no surgical emphysema Abdomen nontender nondistended soft no organomegaly guarding or rigidity/no signs of peritonitis No evidence of Rollins sign being positive Extremities no cyanosis no clubbing no edema Urinary Catheter Management^: Putnam: Cath Placed During This Visit: yes Reason for Continuing Indwelling Catheter: Acute Urinary Retention or Obstruction Urinary Catheter Date of Insertion: 05/27/20 Urinary Catheter Time of Insertion: 05:30 Data Micro: Micro: Microbiology 05/27/20 02:40 Blood Culture - Pr eliminary Blood SPECIMEN COLLE YADIEL 05/27/20 00:18 Blood Culture - Pr eliminary Blood SPECIMEN [facility] A&P Assessment and plan (1) Cholelithiasis: After thorough history physical examination and reviewing the chart I do not see at this point criteria for performing laparoscopic cholecystectomy on urgent basis. I would recommend that start the patient on clear liquid diet and have her n.p.o. after midnight for evaluation in the morning with repeat labs and continue IV fluid resuscitation and hydration actually the patient got dehydrated. Given the fact of no history of fatty dyspepsia and no evidence of clinical tenderness on examination and no evidence of cholecystitis on the ultrasound I would prefer at this point to manage conservatively and potential evaluation for an outpatient elective surgery after other medical conditions have been ruled out. Thank you for consulting general surgery to participate taking care Ms. Grant Status: Acute Consult Attestations Medical Necessity Statement: Patient will require hospitalization for IV fluid resuscitation and repeated physical exam Time Spent in Patient Care: (>than 50% of time spent in counselling and/or direct pt care on unit) . Coding Level of Care Code Acute Planishing Press Operator for Christen Ness Diagnoses Cholelithiasis K80.20
[2020-05-27] MEDS: sodium chloride 0.9% 1,000 ML 150 ML IV ×2 (12:39→21:00)
[2020-05-27] MEDS: cefTRIAXone 1,000 MG in sodium chloride 0.9% (plus) 50 ML 100 MG IV (12:39)
[2020-05-27] MEDS: metoprolol tartrate 50 mg Tablet 100 MG PO (18:30)
[2020-05-28] MEDS: sodium chloride 0.9% 1,000 ML 150 ML IV ×2 (03:45→10:27)
[2020-05-28 04:00] VITALS: BP 110/64; PULSE 70; RESP 18; TEMP 37.2; O2SAT 94
--- NOTE | 2020-05-28 06:11 | PM.PN ---
Subjective Subjective: Interval history: Overall patient feels better and no acute events overnight tolerated clear liquid diet Vitals/I&O/Wt Last Vital Signs Temp 98.9 F 05/28/20 04:00 Pulse 70 05/28/20 04:00 Resp 18 05/28/20 04:00 BP 110/64 05/28/20 04:00 Pulse Ox 94 05/28/20 04:00 05/27/20 05/27/20 05/28/20 14:59 22:59 06:59 Intake Total 100 / 100 1000 / 1100 1000 / 2100 Output Total 1200 / 1200 1600 / 2800 Balance 100 / 100 -200 / -100 -600 / -700 Weight last 48 hrs Weight 134 lb Physical Exam Narrative: EXAM NARRATIVE: Patient is conscious alert oriented X3 BMI 27 Head and neck examination PERRLA no masses no cervical lymphadenopathy no jaundice Abdomen nontender nondistended soft no organomegaly guarding or rigidity/no signs of peritonitis Urinary Catheter Management^: Putnam: Cath Placed During This Visit: yes Reason for Continuing Indwelling Catheter: Acute Urinary Retention or Obstruction Urinary Catheter Date of Insertion: 05/27/20 Urinary Catheter Time of Insertion: 05:30 Data : 05/28/20 05:23 05/28/20 05:23 Micro: Microbiology 05/27/20 02:40 Blood Culture - Preliminary Blood NEGATIVE TO DATE 05/27/20 00:18 Blood Culture - Preliminary Blood NEGATIVE TO DATE A&P Assessment and plan (1) Cholelithiasis: Normalization of WBC count Patient can have soft GI diet Upon discharge patient can follow-up with me as an outpatient to discuss potential elective laparoscopic cholecystectomy Assurance and education All questions have been answered and all concerns have been addressed to patient's satisfaction. Status: Acute Attestations Medical Necessity Statement*: Per hospitalist service Time Spent in Patient Care: (>than 50% of time spent in counselling and/or direct pt care on unit). Coding Level of Care Code Acute Multiple Drill Operator for Christen Ness Diagnoses Cholelithiasis K80.20
[2020-05-28 06:22] LABS: Basophils % 0.1 %; Eosinophils # 0.1 10^3/uL (0.0-0.8); Eosinophils % 1.1 %; Hematocrit 35.7 % (37.0-47.0); Hemoglobin 11.1 g/dL (11.5-15.3); Lymphocytes # 1.8 10^3/uL (0.8-4.8); Lymphocytes % 22.6 %; Mean Corpuscular HGB Conc 31.1 g/dL (30.0-36.0); Mean Corpuscular Hemoglobin 29.2 pg (28.0-34.0); Mean Corpuscular Volume 93.9 fL (81-99); Mean Platelet Volume 12.2 fL (7.4-10.4); Monocytes # 0.6 10^3/uL (0.2-0.9); Monocytes % 7.5 %; Neutrophils # 5.47 10^3/uL (1.8-7.7); Neutrophils % 68.3 %; Nucleated Red Blood Cells % 0 %; Platelet Count 136 10^3/cmm (130-400); Red Cell Distribution Width 13.5 % (12.1-15.1)
[2020-05-28 06:40] LABS: Alanine Aminotransferase 10 U/L (0-33); Albumin Level 3.7 g/dL (3.5-5.2); Alkaline Phosphatase 82 IU/L (35-105); Aspartate Amino Transferase 18 U/L (0-32); Blood Urea Nitrogen 22 mg/dL (8-23); Calcium 8.4 mg/dL (8.5-10.5); Carbon Dioxide 21 mmol/L (22-29); Chloride 111 mmol/L (98-107); Globulin 2.5 g/dL (1.3-4.6); Glucose 95 mg/dL (65-115); Osmolality Calculated 290 mOsm/kg (285-295); Sodium 142 mmol/L (136-145); Total Bilirubin 0.4 mg/dL (0.15-1.2); Total Protein 6.2 g/dL (6.6-8.7)
[2020-05-28 07:28] VITALS: BP 131/63; PULSE 70; RESP 16; TEMP 37.1; O2SAT 95
--- NOTE | 2020-05-28 09:28 | P.DS_ITS ---
Discharge Providers Date of Admission: 05/27/20 08:30 Date of Discharge: May 28, 2020 Attending Provider at Admission: Genesis Love DO Attending Provider at Discharge: Genesis Love DO Primary Care Provider: Christopher Murdock MD Diagnoses at Discharge Discharge Diagnosis (1) Cholelithiasis: Status: Acute Reason for Visit Reason for Visit: feeling sick Hospital Course Hospital Course: Patient was seen and evaluated in the emergency department due to concern for abdominal pain with intractable nausea and vomiting as well as shortness of breath. She had work-up in the ED which showed a very large gallstone in the gallbladder, her white blood cell count on admission was 24,000 with concern for an acute kidney injury and dehydration. Patient was given IV fluids and started on empiric antibiotics and had surgical consult. Patient had significant improvement of symptoms with conservative management. Repeat gallbladder imaging did not show any evidence of gallbladder wall thickening or fluid in patient's white blood cell count drastically improved, remained afebrile and symptoms drastically improved. Patient did not have any tenderness to palpation in the right upper quadrant on date of discharge and vital signs stable. Discussed with general surgeon and due to no evidence of infection in the gallbladder patient is antibiotics were discontinued. She was tested for COVID-19 while in the emergency department, rapid test was negative and send out was pending. This returned Patient was increased to a GI soft, low-fat diet. Discussed with her she has a very large gallstone in her gallbladder and will need elective surgery to have this removed, she verbalized understanding and agreed with plan. On date of discharge she denied any chest pain, no shortness of breath, no abdominal pain or nausea. Discussed with her plan for discharge to home with close follow-up and she verbalized understanding and agreed with plan. Physical Exam Const: COMMON NORMALS: patient oriented x3 and alert GENERAL APPEARANCE: cooperative ORIENTATION/CONSCIOUSNESS: Yes awake, Yes oriented to person, Yes oriented to place and Yes oriented to time HENMT: COMMON NORMALS: normocephalic and atraumatic HEAD & SCALP: normocephalic and atraumatic Eye: COMMON NORMALS: Equal, round and reactive pupils present PUPIL: Yes Equal, round and reactive pupils present Neck/C-Spine: COMMON NORMALS: supple GENERAL: Yes normal visual inspection Resp: COMMON NORMALS: normal respiratory effort and clear to auscultation bilaterally EFFORT & INSPECTION: Yes able to speak in complete sentences AUSCULTATION: clear to auscultation bilaterally, no rhonchi and no wheezes Cardio: COMMON NORMALS: regular rate, regular rhythm and No murmurs present (Cardio) RATE: regular rate RHYTHM: regular rhythm GI: COMMON NORMALS: Soft to palpation INSPECTION: No abdominal distension AUSCULTATION: Yes normoactive bowel sounds PALPATION: Yes Soft to palpation OTHER: No tenderness to palpation in the abdomen, no guarding or rigidity, normal bowel sounds Extremity: COMMON NORMALS: no clubbing, cyanosis or edema and no calf tenderness Neuro: COMMON NORMALS: patient oriented x3, CN's II-XII intact bilaterally, moves all extremities and no focal motor deficits SENSORIUM/ORIENTATION: Yes alert, Yes oriented to person, Yes oriented to place and Yes oriented to time SPEECH: speech normal Psych: COMMON NORMALS: mental status grossly normal and cooperative Skin: COMMON NORMALS: no rashes or lesions noted GENERAL SKIN EXAM: no rashes or lesions noted Urinary Catheter Management^: Putnam: Cath Placed During This Visit: yes Reason for Continuing Indwelling Catheter: Acute Urinary Retention or Obstruction Urinary Catheter Date of Insertion: 05/27/20 Urinary Catheter Time of Insertion: 05:30 Discharge Data Data Completed and Pending: Completed Studies During Hospitalization Category Date Time Status CT chest abd pel wo con Stat Cat Scan 05/27/20 04:12 Completed XR chest 1V rommel ble 20927 Urgent Exams 05/27/20 00:03 Completed US gall bladder 7 6705 Urgent Ultrasound 05/27/20 07:07 Completed Pending at discharge Category Date Time Status Blood Culture Sta t Lab 05/27/20 02:40 Results Coronavirus Lab T est PTC Routine Lab 05/27/20 12:40 Received [facility] SARS-CoV-2 RNA Stat Lab 05/27/20 04:54 Received Troponin(5th) 2 H our. Timed Lab 05/27/20 02:03 Ordered Troponin(5th) 6 h our. Timed Lab 05/27/20 06:03 Ordered Labs from last 24 hours 05/28/20 05/28/20 05/28/20 05:23 05:23 05:23 WBC 8.0 RBC 3.80 L Hgb 11.1 L Hct 35.7 L MCV 93.9 MCH 29.2 MCHC 31.1 RDW 13.5 Plt Count 136 MPV 12.2 H Neut % (Auto) 68.3 Lymph % (Auto) 22.6 Patrick % (Auto) 7.5 Eos % (Auto) 1.1 Baso % (Auto) 0.1 Neut # (Auto) 5.47 Lymph # (Auto) 1.8 Patrick # (Auto) 0.6 Eos # (Auto) 0.1 Baso # (Auto) 0.0 Nucleated RBC % (a uto) 0 Nucleated RBCs # 0.0 Sodium 142 Potassium 4.0 Chloride 111 H Carbon Dioxide 21 L Anion Gap 14.0 BUN 22 Creatinine 1.4 H GFR Calculation Not Reportable Glucose 95 Calculated Osmolal ity 290 Lactic Acid (Sepsi s) Pending Calcium 8.4 L Total Bilirubin 0.4 AST 18 ALT 10 Alkaline Phosphata se 82 Total Protein 6.2 L Albumin 3.7 Globulin 2.5 Nasal/Oral COVID-1 9 PCR 05/27/20 12:40 WBC RBC Hgb Hct MCV MCH MCHC RDW Plt Count MPV Neut % (Auto) Lymph % (Auto) Patrick % (Auto) Eos % (Auto) Baso % (Auto) Neut # (Auto) Lymph # (Auto) Patrick # (Auto) Eos # (Auto) Baso # (Auto) Nucleated RBC % (a uto) Nucleated RBCs # Sodium Potassium Chloride Carbon Dioxide Anion Gap BUN Creatinine GFR Calculation Glucose Calculated Osmolal ity Lactic Acid (Sepsi s) Calcium Total Bilirubin AST ALT Alkaline Phosphata se Total Protein Albumin Globulin Nasal/Oral COVID-1 9 PCR Pending Vitals: Last Vital Signs Temp 98.8 F 05/28/20 07:28 Pulse 70 05/28/20 07:28 Resp 16 05/28/20 07:28 BP 131/63 05/28/20 07:28 Pulse Ox 95 05/28/20 07:28 Discharge Plan Discharge Patient Disposition: Home Condition: Stable Prescriptions: Continued metoprolol tartrate 100 mg tablet 100 mg PO BID RF: 0 felodipine 10 mg tablet extended release 24 hr 10 mg PO DAILY RF: 0 lisinopril 5 mg tablet 5 mg PO DAILY RF: 0 ezetimibe 10 mg tablet 10 mg PO DAILY RF: 0 rosuvastatin 5 mg tablet 5 mg PO DAILY RF: 0 Vitamin D3 50 mcg (2,000 unit) Capsule 50 mcg PO DAILY RF: 0 Toviaz 8 mg tablet extended release 24 hr 8 mg PO DAILY RF: 0 Discharge Orders: Discharge Order (Routine); Ordered 05/28/20 Ordered By: Genesis Love Referrals: Ramin Arciniega MD [Physician] - 06/05/20 2:45 pm (Return to surgery office in 1 week. You have an appointment on June 05 at 2:45) Christopher Murdock MD [Primary Care Provider] - 06/04/20 9:30 am (You have an appointment on June 04 at 9:30am) Discharge Diet: As Directed and Low Fat Discharge Activity: Increase activity as tolerated Patient Instructions: Dehydration - Adult, Cholelithiasis (DC), Low Fat Diet (DC) Activity Restrictions/Additional Instructions: You are diagnosed with a gallstone, stone in the gallbladder, felt this was contributing to your symptoms of abdominal pain and nausea. Would recommend outpatient follow-up with Dr. Arciniega as scheduled in 1 week to discuss surgery for removal of the gallbladder. Until this time it is strongly recommended to continue with a bland, low-fat, diet. [place], spicy or fatty foods can aggravate the gallbladder and contribute to more pain, therefore it is it essential to avoid these foods. No changes to your medications at this time. Your kidney function improved with fluids, slight increase in your kidney function on admission was likely due to dehydration. Continue to follow-up with Dr. Willett as previously scheduled Follow-up with primary care provider in 7 to 10 days Call your physician or present to the ED for any acute illness or concern Discharge Date/Time: 05/28/20 14:02 Discharge Attestations Time Spent in Discharge Care*: greater than 30 min Specific Discharge Activities: Specific discharge activities: educating and/or supporting family/caregiver, discussing with pcp/other providers, discussing with case packer and sealer/social workers/dc planners and documenting/other paperwork Quality Metrics Clinical Quality Measures During this hospital stay, did patient experience: None Coding Level of Care Code Acute Hospice Spiritual Care Coordinator for Chg Fwd Exam Comprehensive Diagnoses Cholelithiasis K80.20
[2020-05-28] MEDS: metoprolol tartrate 50 mg Tablet 100 MG PO (09:30)
[2020-05-28] MEDS: cefTRIAXone 1,000 MG in sodium chloride 0.9% (plus) 50 ML 100 MG IV (10:26)
[2020-05-28 11:11] VITALS: BP 150/69; PULSE 66; RESP 18; TEMP 36.8; O2SAT 96
[2020-05-28 14:00] VITALS: BP 150/69; PULSE 66; RESP 18; TEMP 36.8; O2SAT 96
[2020-05-28 20:06] LABS: Quest SARS-CoV-2 RNA NOT DETECTED (NOT DETECTED)
[2020-05-28 21:39] LABS: Coronavirus Lab Test PTC Negative
--- NOTE | 2020-05-31 15:54 | PC.SOCIAL ---
Notified patient per Dr Love request since she was unable to reach earlier in the week that her PCR send out for COVID was negative. Patient verbalized understanding and was very pleased to hear this since she plans to attend a [place] singing service tomorrow night and was not sure if she should go. We discussed to practice social distancing, wear mask, wash hands often. Patient verbalized she plans to do so and appreciates the call.
== END 2020-05-28 14:02 | disposition home or self-care (01) | DRG 446 ==
LOC: ER 05-27 06:32 → MEDSURG 05-27 08:57
PROVIDERS: Emergency Medicine; Family Medicine; Physician Assistant; Admitting Provider Family Medicine; PCP Family Medicine; Visit Provider Family Medicine
DX: K80.00 Calculus of gallbladder with acute cholecystitis without obstruction (principal); I12.9 Hypertensive chronic kidney disease with stage 1 through stage 4 chronic kidney disease, or unspecified chronic kidney disease; N18.9 Chronic kidney disease, unspecified; E78.5 Hyperlipidemia, unspecified; K21.9 Gastro-esophageal reflux disease without esophagitis; E86.0 Dehydration
CPT/HCPCS: 12345; 36415; 36600; 51702; 71045; 71250; 74176; 76705; 80051; 80053; 81001; 82009; 82810; 83605; 83690; 83735; 83986; 84484; 85025; 85378; 87040; 87426; 87635; 87804; 93005; 99284; J0696; J2543; J7030

== ENCOUNTER → 2020-06-14 10:50 | Outpatient (BNVA) | payer MEDICARE, OTHER, SELFPAY | PROVIDERS: PCP Family Medicine; Visit Provider Surgery | DX: Z11.59 Encounter for screening for other viral diseases (principal) | CPT/HCPCS: 87635 ==

== ENCOUNTER 2020-06-18 09:08 | Day surgery (SDC) | payer MEDICARE, OTHER, SELFPAY ==
[2020-06-17 13:18] VITALS: BMI 26.6
[2020-06-18] VITALS (7 sets, daily range): BP systolic 134–168; BP diastolic 60–79; PULSE 50–88; RESP 18–20; TEMP 36.3–36.7; O2SAT 95–99
[2020-06-18] MEDS: sodium chloride 0.9% 1,000 ML 30 ML IV (10:15)
--- NOTE | 2020-06-18 10:20 | W.PM.OPSUD ---
Surgery/Procedure H&P Update DATE OF PROCEDURE: June 18, 2020 DATE H&P PERFORMED: 06/05/20 H&P UPDATE INFORMATION: I have reviewed H&P completed within last 30 days, I have examined patient prior to procedure and No changes to prior documentation PREOP DIAGNOSIS: Nausea and symptomatic cholelithiasis PRIMARY INDICATION FOR PROCEDURE: The same PLANNED PROCEDURE: Operation Date: 06/18/20 10:55 Proposed Procedures p Laparoscopic Cholecystectomy 28509 [id number] K80.20 R11.0(Not Applicable) - Ramin Arciniega MD s EGD(Not Applicable) - Ramin Arciniega MD
--- NOTE | 2020-06-18 12:04 | P.ANESASSM_ITS ---
Pre-Anesthetic Assessment Pre-Anesthetic Assessment: Height/Weight: Height 1.5 m Weight 59.874 kg Temp Pulse Resp BP Pulse Ox 97.8 F 88 18 136/66 99 06/18/20 09:50 06/18/20 10:04 06/18/20 10:04 06/18/20 10:04 06/18/20 10:04 Preop Diagnosis: Nausea and symptomatic cholelithiasis Proposed Procedure: Operation Date: 06/18/20 10:55 Proposed Procedures p Laparoscopic Cholecystectomy [id number] K80.20 R11.0(Not Applicable) - Ramin Arciniega MD s EGD(Not Applicable) - Ramin Arciniega MD Familial anesthetic complications: None Was Beta Brett taken within 24 hours: Yes Last intake: Intake Last Liquid Date 06/17/20 Last Liquid Time 18:00 Last Solid Date 06/06/20 Last Solid Time 17:00 Social: Social History: No alcohol and No tobacco Exam: Pre-Anes Outpt Exam: alert, oriented x 3, clear to auscultation bilaterally and regular rate & rhythm Airway: Cervical ROM: WNL MP: 2 Dentition: Partials CV/HEM: CV/HEM: HTN : : Chronic renal failure Comments: one kidney (renal agenesis) - other one is poorly functioning. see graphite disk assembler every 6 months. no dialysis GI: GI: GERD (severe) Anesthetic Plan: ASA status: 2 Anesthesia: General Risk of > 500 ml blood loss (7ml/kg in children): No Meds/Allergies Current Medications: Current Medications Generic Name Dose Route Start Last Admin Trade Name Freq PRN Reason Stop Dose Admin Sodium Chloride 1,000 mls @ 30 ml s/hr 06/18/20 09:30 06/18/20 10:15 Sodium Chloride 0.9% IV 06/19/20 09:29 30 mls/hr .Q24H SHAWNA Administration PFSH Anesthesia PFSH: Medical History (Updated 06/06/20 @ 17:26 by Ramin Arciniega MD) Chronic kidney disease Hyperlipidemia Hypertension Surgical History History of hysterectomy Family History Mother CAD (coronary artery disease) Father Lung disease CAD (coronary artery disease) Sister Cancer Colon cancer Denies family history of Anesthesia complication Bleeding disorder Social History Smoking and tobacco status: never smoked Alcohol intake: never Household members: spouse Marital status: Current occupational status: retired History of recent travel: No Data Anesthesia Cardiac Studies: No Data to Display
[2020-06-18] MEDS: lidocaine 2% INJ 20 mL INJECTION (14:36)
--- NOTE | 2020-06-18 14:39 | P.OP_ITS ---
Operative Report Date of procedure: June 18, 2020 Pre-op Diagnosis: Nausea and symptomatic cholelithiasis Pre-op Diagnosis: Chronic Calculus Cholecystitis and GERD Post-op diagnosis: other (GERD) Post-op Findings: Chronic calculus cholecystitis . GE junction at 33 cm presence of GERD Procedure Done: Laparoscopic cholecystectomy and esophagogastroduodenoscopy. Implants: Large piece of Surgicel Specimens removed/disposition: Gall Bladder and Contents Surgeon: Ramin Arciniega Manager Science: Jamila Lamb and medical student Ariella Circulating Nurses Ophelia and Zainab Metz Anesthesia: General (WRINGER OPERATOR Joon ) Estimated blood loss (mL): 25 IV fluids (mL): 700 Condition: stable Disposition: same day Brief History: This is a pleasant 75 years old female patient has been having symptomatic cholelithiasis yet she did have epigastric discomfort and there was concern about gastritis as well. Plan of care; After thorough history physical examination and reviewing the chart ,I counseled the patient for laparoscopic cholecystectomy possible open and intraoperative EGD possible biopsy, indications risks including but not limited injury to the common bile duct and other viscera.benefits and alternatives all discussed with the patient, and she did agree to proceed. All questions have been answered and all concerns have been addressed to patient's satisfaction. Rationale was carefully and clearly discussed with the patient.Appropriate informed consent have been reviewed and signed. Procedure: Patient was identified in the holding area and taken back to the operative suite, placed in supine position intubated by anesthesia . Time-out was done verifying the patient's name/date of /planned procedure and destination after the procedure, all were in agreement. SCDs confirmed to be functioning, preoperative antibiotics administered per protocol, and beta hailey protocol was confirmed. Patient was appropriately secured to the table, footboard was applied to the OR table, before prep and drape anesthesia was asked to tilt the table back and forth to make sure that the patient is appropriately secured and she was. Prep and drape of the abdomen was done under the usual sterile technique, followed by that infra umbilical skin incision,skin incision was done by a 15 blade knife, and stay sutures were applied to the fascia and Lua trocar technique was used to enter the abdominal without injuring any abdominal viscera, started by low flow gas insufflation followed by a high flow, started with a 10 mm laparoscope and under direct vision there was no evidence of any injuries, the scope then switched to a 30? ,10 millimeter scope, I did notice extensive intra-abdominal adhesions and I elected at this point to add a left upper quadrant 5 mm trocar that was inserted under direct visualization. Using LigaSure device and under direct vision Extensive adhesiolysis was achieved exceeding 1 hour of the operating time, adhesions were taken down, at this point the upper abdomen was clear and under direct visualization two 5 mm trocars were inserted in the right upper quadrant that was done after injection of local li docaine 2% at all incision sites. More adhesions towards the midline were taken down and hemostasis was achieved. All adhesions were in the form of omentum. At this point an incision was created epigastric area to insert 5 mm trocar balloon tipped under direct visualization. Gallbladder showed chronic calculus cholecystitis Patient was then positioned in the head up and tilted to the left Ratcheted forceps were introduced into the lateral most 5mm port and was applied unto the fundus of the gallbladder cephalad and using Bullet forceps the infundibulum of the gallbladder was retracted laterally. Using [place] forceps then L-hook cautery to dissect the peritoneum overlying the Calot's triangle which was then opened medially and laterally until the cystic duct and the cystic artery were skeletonized.Dissection was carried along the body of the gallbladder and after ensuring critical view of safety was identfied. Cystic duct and cystic artery where seen connected to the gallbladder. Clips were applied on the cystic duct towards the common bile duct 1 towards the gallbladder then divided is in sharp scissors, 2 clips were then applied onto the cystic artery and 1 towards the gallbladder and divided by sharp scissors. Dissection was then carried along of the gallbladder from the gallbladder fossa using cautery as well as sharp dissection with heat energy. The gallb ladder then was dissected out from the gallbladder fossa totally , cholecystectomy was then achieved and was placed in an Endo Catch bag and then retrieved from the Lua trocar site under direct visualization using a 5 mm 30? scope through the epigastric trocar, specimen was then passed to the circulating nurse to go for permanent pathology,irrigation and hemostasis was done to the gallbladder fossa after hemostasis was secured, final survey laparoscopy was done that showed no injuries.Suction irrigation was obtained.I have elected this point to place a large piece of Surgicel at the gallbladder fossa to optimize hemostasis. While the patient is still under anesthesia ,I scrubbed out and started introducing the EGD via the mouth under direct visualization.I was able to assess the esophagus stomach and duodenum till the second part, mild GERD was noticed at the GE junction. GE junction at 33 cm from the incisors the remaining of the examination was unremarkable The scope was retrieved under direct visualization and gas was deflated,no biopsies were obtained at that point. The procedure was done under the laparo endoscopic view Afterwards I scrubbed back and A final survey laparoscopy showed no injuries or bleeding. The infraumbilical fascial defect was then closed using interrupted PDS and 0 Vicryl sutures using a fascial closure device ;Mike Tipton under direct visualization Gas was allowed to deflate,Trocars were then taken out under direct vision there was no evidence of bleeding Specimen was passed to the circulating nurse for permanent pathology. No drains were placed and the infraumbilical incision as well as all trocar sites were closed by by 4-0 Monocryl to approximate the skin edges of the supraumbilical incision, dressing was applied in the form of surgical glue and the patient patient got extubated and was taken to recovery area in a stable condition. Count of sponges,needles and instruments were completed at the end of the procedure I was present for the whole entire procedure.
--- NOTE | 2020-06-18 15:00 | SUR.PHASEI ---
1458 PATIENT TO PACU FROM OR. RR EVEN AND UNLABORED. 4 INCISIONS TO ABDOMEN, CLOSED WITH EXOFIN.
--- NOTE | 2020-06-18 15:20 | SUR.PHASEI ---
1517 PATIENT TO OPS. DENIES NAUSEA. TOLERATING ICE CHIPS. DENIES PAIN. 4 INCISIONS TO ABDOMEN, CDI.
--- NOTE | 2020-06-18 16:11 | ANE.PACU2 ---
Inpatient post-anesthesia follow up: Airway intact: Yes Vital signs: Temperature 97.3 F Pulse Rate 50 Respiratory Rate 18 Blood Pressure 161/70 Pulse Oximetry 96 Oxygen Delivery Me thod Room Air Oxygen Flow Rate Fraction of Inspir ed Oxygen Hydration adequate: Yes Nausea and vomiting: No Pain level: 2 Mental status: Baseline
== END 2020-06-18 16:13 | disposition home or self-care (01) ==
PROVIDERS: PCP Family Medicine; Visit Provider Surgery
PROC: 0FT44ZZ Resection of Gallbladder, Percutaneous Endoscopic Approach (ICD-10-PCS; CPT 47562; principal; 2020-06-18 10:55)
PROC: 0DJ08ZZ Inspection of Upper Intestinal Tract, Via Natural or Artificial Opening Endoscopic (ICD-10-PCS; CPT 43235; 2020-06-18 10:55)
PROC: (CPT 43235; 2020-06-18 10:55)
DX: K80.10 Calculus of gallbladder with chronic cholecystitis without obstruction (principal); K21.9 Gastro-esophageal reflux disease without esophagitis; E78.5 Hyperlipidemia, unspecified; I12.9 Hypertensive chronic kidney disease with stage 1 through stage 4 chronic kidney disease, or unspecified chronic kidney disease; N18.9 Chronic kidney disease, unspecified; Z82.49 Family history of ischemic heart disease and other diseases of the circulatory system
CPT/HCPCS: 43235; 47562; 12345; 88304; 96365; J0131; J0690; J1100; J2405; J2704; J2710; J3010; J3490; J7030

== ENCOUNTER 2020-07-18 08:05 | Outpatient (CLI) | payer MEDICARE, OTHER, SELFPAY ==
[2020-07-18 09:06] LABS: Basophils % 0.3 %; Eosinophils # 0.2 10^3/uL (0.0-0.8); Eosinophils % 2.7 %; Hematocrit 37.7 % (37.0-47.0); Hemoglobin 11.7 g/dL (11.5-15.3); Lymphocytes # 1.3 10^3/uL (0.8-4.8); Lymphocytes % 22.7 %; Mean Corpuscular Hemoglobin 29.2 pg (28.0-34.0); Mean Platelet Volume 12.1 fL (7.4-10.4); Monocytes # 0.5 10^3/uL (0.2-0.9); Monocytes % 7.8 %; Neutrophils # 3.88 10^3/uL (1.8-7.7); Neutrophils % 66.3 %; Nucleated Red Blood Cells % 0 %; Platelet Count 141 10^3/cmm (130-400); Red Blood Count 4.01 10^6/uL (4.1-5.3); Red Cell Distribution Width 13.6 % (12.1-15.1); White Blood Count 5.9 10^3/uL (4.0-10.0)
[2020-07-18 09:27] LABS: Urine Creatinine 72 mg/dL (28-217); Urine Protein Random 13 mg/dL
[2020-07-18 09:33] LABS: UPRO/UCREAT Ratio 0.18 mg/mg CR
[2020-07-18 09:43] LABS: Calcium 9.6 mg/dL (8.5-10.5)
[2020-07-18 09:45] LABS: Blood Urea Nitrogen 19 mg/dL (8-23); Calcium 9.4 mg/dL (8.5-10.5); Carbon Dioxide 25 mmol/L (22-29); Chloride 106 mmol/L (98-107); Glucose 97 mg/dL (65-115); Phosphorus 3.3 mg/dL (2.5-4.5); Sodium 141 mmol/L (136-145)
[2020-07-18 10:14] LABS: 25 Hydroxy Vitamin D 53 ng/mL (30-100)
== END 2020-07-18 08:06 | disposition home or self-care (01) ==
LOC: LAB 08:10
PROVIDERS: PCP Family Medicine; Visit Provider Nurse Practitioner Family
DX: N18.30 Chronic kidney disease, stage 3 unspecified (principal)
CPT/HCPCS: 36415; 80069; 82306; 82310; 82570; 83970; 84156; 85025

== ENCOUNTER 2020-08-13 15:21 | Outpatient (CLI) | payer MEDICARE, OTHER, SELFPAY ==
--- NOTE | 2020-08-13 15:28 | XR_ITS ---
WS: [id number] DEXA (DUAL ENERGY X-RAY ABSORPTIOMETRY) Bone mineral density was performed using a CereScan machine. HISTORY: POST MENOPAUSAL COMPARISON: 07/26/2018 Lumbar spine BMD (L1-L4): 1.054 g/cm2 T score: -1.1 Z score: 0.9 Total hip BMD: Left: 0.739 g/cm2. T score: -2.1 Z score: -0.2 Right: 0.782 g/cm2. T score: -1.8 Z score: 0.1 10 year probability of a major osteoporotic fracture is 34%. Compared to the prior study from 07/26/2018. Lumbar spine bone mineral density has not changed since the prior study. Bilateral hips bone mineral density has decreased by 1.0%. XR/XR DEXA axial skeleton* [id number] IMPRESSION: OSTEOPENIA based upon the WHO classification for females. No significant change since the prior study.
== END 2020-08-13 15:22 | disposition home or self-care (01) ==
LOC: RADWPI 15:25
PROVIDERS: PCP Family Medicine; Visit Provider Family Medicine
DX: Z78.0 Asymptomatic menopausal state (principal); M85.88 Other specified disorders of bone density and structure, other site
CPT/HCPCS: 77080

== ENCOUNTER 2021-07-09 08:53 | Outpatient (CLI) | payer MEDICARE, OTHER, SELFPAY ==
[2021-07-09 09:44] LABS: Basophils % 0.3 %; Eosinophils # 0.2 10^3/uL (0.0-0.8); Eosinophils % 2.9 %; Hematocrit 43.8 % (37.0-47.0); Lymphocytes # 1.6 10^3/uL (0.8-4.8); Lymphocytes % 24.5 %; Mean Corpuscular Hemoglobin 29.4 pg (28.0-34.0); Mean Corpuscular Volume 91.8 fl (81-99); Mean Platelet Volume 11.9 fL (7.4-10.4); Monocytes # 0.5 10^3/uL (0.2-0.9); Monocytes % 7.7 %; Neutrophils % 64.3 %; Nucleated Red Blood Cells % 0 %; Platelet Count 172 10^3/cmm (130-400); Red Blood Count 4.77 10^6/uL (4.1-5.3); Red Cell Distribution Width 13.2 % (12.1-15.1); White Blood Count 6.5 10^3/uL (4.0-10.0)
[2021-07-09 10:24] LABS: Calcium 9.8 mg/dL (8.5-10.5)
[2021-07-09 10:34] LABS: Creatinine Urine, Random 82 mg/dL (28-217); Microalbumin Random Urine 18 ug/dL (0-20)
[2021-07-09 10:35] LABS: Microalbum Creatinine Ratio Ur 220 mg/dL (0-20)
[2021-07-09 10:48] LABS: Parathyroid Hormone 76.1 pg/mL (15-65)
[2021-07-09 13:01] LABS: Albumin Level 4.7 g/dL (3.5-5.2); Anion Gap 15.5 (5-19); Blood Urea Nitrogen 25 mg/dL (8-23); Calcium 9.9 mg/dL (8.5-10.5); Carbon Dioxide 24 mmol/L (22-29); Chloride 103 mmol/L (98-107); Glucose 96 mg/dL (65-115); Phosphorus 3.2 mg/dL (2.5-4.5); Potassium 4.5 mmol/L (3.5-5.1); Sodium 138 mmol/L (136-145)
== END 2021-07-09 08:54 | disposition home or self-care (01) ==
LOC: LAB 08:58
PROVIDERS: PCP Family Medicine; Visit Provider Internal Medicine Nephrology
DX: N18.32 Chronic kidney disease, stage 3b (principal)
CPT/HCPCS: 36415; 80069; 82044; 82310; 83970; 85025

== ENCOUNTER 2021-08-01 09:29 | Outpatient (CLI) | payer MEDICARE, OTHER, SELFPAY ==
--- NOTE | 2021-08-01 09:33 | MM_ITS ---
WS: [id number] Exam: [id number] Date/Time of Exam: 08/01/2021 9:50 AM Reason For Exam: SCREENING VIEWS: MLO and CC views both breasts. Comparison made with prior exam of 01/12/2017, 07/26/2018. Findings: There was no sign of mass, architectural distortion or suspicious calcification in either breast. Sc attered fibroglandular densities MM/[place] [id number] Impression: BI-RADS: 2-Benign FOLLOW-UP: 1 Year Follow-up This mammogram was also analyzed by the Computer Aided Detection System R2 Imag e Imaging Assistant.
== END 2021-08-01 09:30 | disposition home or self-care (01) ==
LOC: RADSHAW 09:32
PROVIDERS: PCP Family Medicine; Visit Provider Family Medicine
DX: Z12.31 Encounter for screening mammogram for malignant neoplasm of breast (principal)
CPT/HCPCS: 77067

== ENCOUNTER 2022-09-08 14:56 | Outpatient (CLI) | payer MEDICARE, OTHER, SELFPAY ==
--- NOTE | 2022-09-08 15:47 | XR_ITS ---
WS: [id number] SCREENING DEXA SCAN [employer] CLINICAL INFORMATION: POSTMENOPAUSAL COMPARISON: 2019 FINDINGS: The L1-L4 bone mineral density measures 1.059 g/cm2. This corresponds to a T score score of -1.0 and Z score of 0.9. Left femoral neck bone mineral density measures 0.705 g/cm2. This corresponds to a T score of -2.4 an d Z score of -0.5. Right femoral neck bone mineral density measures 0.791 g/cm2. This corresponds to a T score -1.7of an d Z score of 0.2. Mean femoral neck bone mineral density measures 0.748 g/cm2. This corresponds to a T score of -2.1 an d Z score of -0.1. XR/XR DEXA axial skeleton* [id number] IMPRESSION: Osteopenia lumbar spine at the lower end of the range. Osteopenia femoral necks at the upper end of the range.. Patient's FRAX calculated 10 year probability for major osteoporotic fracture i s 40.1 % and osteoporotic hip fracture is 18.8%. Since 2020,Bone mineral density in the lumbar spine has increased +0.5% and in the femoral necks decreased -1.6%.
== END 2022-09-08 14:57 | disposition home or self-care (01) ==
PROVIDERS: PCP Family Medicine; Visit Provider Family Medicine
DX: Z78.0 Asymptomatic menopausal state (principal); M85.88 Other specified disorders of bone density and structure, other site
CPT/HCPCS: 77080

== ENCOUNTER 2024-02-21 12:42 | Outpatient (CLI) | payer MEDICARE, OTHER, SELFPAY ==
--- NOTE | 2024-02-21 12:49 | MM_ITS ---
WS: [id number] BILATERAL 3D TOMOSYNTHESIS DIGITAL SCREENING MAMMOGRAPHY WITH CAD CLINICAL INFORMATION: SCREENING HISTORY: Screening mammogram. No current complaints. COMPARISON: 2020 TECHNIQUE: Bilateral CC and MLO views. FINDINGS: The breasts are composed of heterogeneous fibroglandular density tissue, which can limit the detectio n of small underlying mass lesions. No suspicious mass, asymmetry, calcifications, or architectural d istortion. No evidence of malignancy. Incidental punctate calcifications RIGHT greater than LEFT [address]ia [address] MM/[place] [id number] IMPRESSION: BI-RADS: 2-Benign FOLLOW UP: 1 Year Follow-up Recommend return to annual screening mammography.
--- NOTE | 2024-02-21 12:49 | XR_ITS ---
WS: [id number] DEXA (DUAL ENERGY X-RAY ABSORPTIOMETRY) Bone mineral density was performed using a Super machine. HISTORY: POSTMENOPAUSAL COMPARISON: 09/08/2022 Lumbar spine BMD (L1-L4): 1.125 g/cm2 T score: -0.5 Z score: 1.3 Total hip BMD: Left: 0.699 g/cm2. T score: -2.5 Z score: -0.5 Right: 0.770 g/cm2. T score: -1.9 Z score: 0.0 10 year probability of a major osteoporotic fracture is 36.6%. Compared to the prior study from 09/08/2022. Lumbar spine bone mineral density has increased by 6.2%. Bilateral hips bone mineral density has decreased by 1.7%. XR/XR DEXA axial skeleton* [id number] IMPRESSION: OSTEOPOROSIS based upon the WHO classification for females. Significant increase in bone mineral density in the lumbar spine since the prio r study. No change in the bone mineral density of the hips.
== END 2024-02-21 12:43 | disposition home or self-care (01) ==
LOC: RAD 12:43
PROVIDERS: PCP Family Medicine; Visit Provider Family Medicine
DX: Z12.31 Encounter for screening mammogram for malignant neoplasm of breast (principal); Z78.0 Asymptomatic menopausal state; R92.333 Mammographic heterogeneous density, bilateral breasts; R92.1 Mammographic calcification found on diagnostic imaging of breast; M81.0 Age-related osteoporosis without current pathological fracture
CPT/HCPCS: 77063; 77067; 77080

== ENCOUNTER 2025-05-30 08:53 | Outpatient (CLI) | payer MEDICARE, OTHER, SELFPAY ==
--- NOTE | 2025-05-30 16:08 | MM_ITS ---
BILATERAL SCREENING DIGITAL TOMOSYNTHESIS MAMMOGRAM WITH CAD HISTORY: SCREENING COMPARISON: 02/21/2024, 08/01/2021 and 07/26/2018 Bilateral CC and MLO views with tomosynthesis and synthetic mammography submitted. Computer aided detection analyzed. Breast composition: The breasts are heterogeneously dense, which may obscure small masses. No suspicious masses, microcalcifications or architectural distortion. Scattered bilateral asymmetries and a few calcifications. Asymmetry in the inferior LEFT breast on the MLO projection was present in 2018. IMPRESSION: BI-RADS: 2 - Benign FOLLOW UP: 1 Year Follow-up YANI
== END 2025-05-30 08:54 | disposition home or self-care (01) ==
LOC: RAD 08:55
PROVIDERS: PCP Family Medicine; Visit Provider Family Medicine
DX: Z12.31 Encounter for screening mammogram for malignant neoplasm of breast (principal); R92.333 Mammographic heterogeneous density, bilateral breasts; R92.8 Other abnormal and inconclusive findings on diagnostic imaging of breast; N64.89 Other specified disorders of breast
CPT/HCPCS: 77063; 77067